=== PATIENT | female | born 1945 | race Caucasian/White ===

== ENCOUNTER 2018-04-27 11:26 | Outpatient (CLI) | payer MEDICARE, SELFPAY ==
[2018-04-27 13:17] LABS: CREATININE 0.66 mg/dL (0.55-1.02); Potassium 4.3 mmol/L (3.5-5.1)
== END 2018-04-27 11:46 ==
PROVIDERS: PCP Family Medicine; Visit Provider Family Medicine
DX: I10 Essential (primary) hypertension (principal); D05.90 Unspecified type of carcinoma in situ of unspecified breast
CPT/HCPCS: 36415; 82565; 84132

== ENCOUNTER 2018-05-25 00:09 | Outpatient (CLI) | payer MEDICARE, SELFPAY ==
--- NOTE | 2018-05-25 13:15 | DI.MAMMO_ITS ---
SYMPTOMS/DIAGNOSIS: CARCINOMA IN SITU OF RIGHT BREAST IN 1993, D05.90, PERSONAL H/O BREAST CA, SCREENING, Z12.31 MAMMOGRAMS: Mammograms were interpreted according to the usual protocol including computer analysis with CAD system, tomosynthesis and C view imaging. Comparison is with the prior examinations. No suspicious masses or microcalcifications are seen. There has been no significant change compared to the prior examinations. IMPRESSION: No evidence for malignancy. Yearly mammography is recommended. Category 1. Breast density B. MQSA ASSESSMENT OF FINDINGS: Negative. Category 1. Patient will receive a letter notifying them of these results. BI-RADS category B. There are scattered areas of fibroglandular density.
== END 2018-05-25 00:29 ==
PROVIDERS: PCP Family Medicine; Visit Provider Family Medicine
DX: Z12.31 Encounter for screening mammogram for malignant neoplasm of breast (principal); Z85.3 Personal history of malignant neoplasm of breast
CPT/HCPCS: 77063; 77067

== ENCOUNTER 2018-10-07 02:23 | Outpatient (CLI) | payer MEDICARE, SELFPAY ==
--- NOTE | 2018-10-07 08:01 | DI.MRI_ITS ---
SYMPTOM/DIAGNOSIS: RT SIDED HEADACHE, R51 BRAIN MRI: There are no prior comparison exams. T 2 sagittal, T 1, T 2, FLAIR, diffusion and gradient echo axial sequences were performed. No intracranial hemorrhage, mass or acute infarct is seen. There is mild atrophy consistent with the patient's age. There are numerous areas of white matter consistent with small vessel disease. The ventricles are normal in size. The vascular flow voids appear intact. There is mild mucosal thickening of the right maxillary sinus. The mastoid air cells appear clear. IMPRESSION: Prominent changes of small vessel disease. No acute abnormality.
[2018-10-07 10:49] LABS: ESR 10 MM/HR (0-30)
== END 2018-10-07 02:43 ==
PROVIDERS: PCP Family Medicine; Visit Provider Family Medicine
DX: R51 Headache (principal); G31.1 Senile degeneration of brain, not elsewhere classified
CPT/HCPCS: 36415; 85652; 70551

== ENCOUNTER 2019-05-26 00:41 | Outpatient (CLI) | payer MEDICARE, SELFPAY ==
--- NOTE | 2019-05-26 14:19 | DI.MAMMO_ITS ---
EXAM: MG MAMMO SCREENING 60 MIN DUR CLINICAL HISTORY: HX OF BREAST CANCER TECHNIQUE: Bilateral full field digital CC and MLO mammographic images were obtained with 3D tomosyn thesis and utilizing computer aided detection (CAD). COMPARISON: Available for comparison. FINDINGS: Masses/Architectural Distortion: None seen. Microcalcifications: No suspicious pleomorphic-type are seen. Skin Thickening/Nipple Retraction: None. IMPRESSION: 1. No significant interval change with no specific features of malignancy noted. 2. Unless there is more urgent need, screening mammography is recommended, as per [employer] guidelines. ACR BI-RAD Category- 1 Negative Breast Density - Category B - Scattered areas of fibroglandular density The findings were discussed with the patient on the date of the examination. A negative radiographic report should not delay biopsy if a dominant or clinically suspicious mass is present. Up to ten percent of cancers are not identified on mammography. A negative report may reinforce clinical impression. Adenosis and dense breasts may obscure an underlying neoplasm. False positive reports average 6 to 10%. Patient will receive a letter notifying them of these results.
[2019-05-26 15:42] LABS: CREATININE 0.68 mg/dL (0.55-1.02); Calculated LDL 100 mg/dL; Cholesterol 202 mg/dL (<200); HDL Cholesterol 40 mg/dL (40-60); Potassium 4.2 mmol/L (3.5-5.1); Triglyceride 314 mg/dL (<150)
== END 2019-05-26 01:01 ==
PROVIDERS: PCP Family Medicine; Visit Provider Family Medicine
DX: Z12.31 Encounter for screening mammogram for malignant neoplasm of breast (principal); Z85.3 Personal history of malignant neoplasm of breast; E78.00 Pure hypercholesterolemia, unspecified
CPT/HCPCS: 36415; 77063; 77067; 80061; 82565; 84132

== ENCOUNTER 2019-06-05 01:27 | Outpatient (CLI) | payer MEDICARE, SELFPAY ==
[2019-06-05 09:43] LABS: Triglyceride 151 mg/dL (<150)
== END 2019-06-05 01:47 ==
PROVIDERS: PCP Family Medicine; Visit Provider Family Medicine
DX: E78.1 Pure hyperglyceridemia (principal)
CPT/HCPCS: 36415; 84478

== ENCOUNTER 2020-08-27 01:25 | Outpatient (CLI) | payer MEDICARE, SELFPAY ==
--- NOTE | 2020-08-27 08:47 | DI.RAD_ITS ---
EXAM: XR TIB/FIB RT CLINICAL HISTORY: Pt fell in tub and hit alcantara/foot on tub wall,M79.671 TECHNIQUE: COMPARISON: No exams were available for comparison FINDINGS: Two views were obtained. There is no evidence of fracture or dislocation. IMPRESSION: RADIATION DOSE DELIVERED: Total DLP
== END 2020-08-27 01:45 ==
PROVIDERS: PCP Family Medicine; Visit Provider Nurse Practitioner Family
DX: M79.671 Pain in right foot (principal); I10 Essential (primary) hypertension; R73.9 Hyperglycemia, unspecified; R78.5 Finding of other psychotropic drug in blood; E03.9 Hypothyroidism, unspecified
CPT/HCPCS: 36415; 80061; 82947; 73590; 82565; 84132; 84443

== ENCOUNTER 2020-08-27 02:46 | Outpatient (CLI) | payer MEDICARE, SELFPAY ==
[2020-08-27 09:55] LABS: CREATININE 0.8 mg/dL (0.55-1.02); Glucose 98 mg/dL (74-106); Potassium 4.4 mmol/L (3.5-5.1); TSH (W/Ref FT4) 3.44 uIU/mL (0.36-3.74)
[2020-08-27 10:13] LABS: Calculated LDL 112 mg/dL (<100); Cholesterol 195 mg/dL (<200); HDL Cholesterol 45 mg/dL (40-60); Triglyceride 194 mg/dL (<150)
== END 2020-08-27 02:47 | disposition home or self-care (01) ==
LOC: LBO 02:46
PROVIDERS: PCP Family Medicine; Visit Provider Family Medicine
DX: I10 Essential (primary) hypertension (principal); R73.9 Hyperglycemia, unspecified; R78.5 Finding of other psychotropic drug in blood; E03.9 Hypothyroidism, unspecified
CPT/HCPCS: 36415; 80061; 82947; 82565; 84132; 84443

== ENCOUNTER 2020-09-04 01:49 | Outpatient (CLI) | payer MEDICARE, SELFPAY ==
--- NOTE | 2020-09-04 14:05 | DI.MAMMO_ITS ---
EXAM: MG MAMMO SCREENING 60 MIN DUR CLINICAL HISTORY: breast cancer screening,PERSONAL H/O BREAST CA,Z85.3,Z12.39. TECHNIQUE: Bilateral full field digital CC and MLO mammographic images were obtained with 3D tomosyn thesis and utilizing computer aided detection (CAD). COMPARISON: Prior mammograms dating back to 2010, the most recent being May 2019. FINDINGS: No new significant radiograph findings in the right breast. There is a small benign-appearing partia lly calcified nodule inferiorly in the left breast measuring 4 x 3 millimeters, unchanged from 1013 a nd therefore benign. There are no new spiculated masses nor malignant appearing microcalcification groups. There is no significant architectural distortion nor skin thickening-retraction. IMPRESSION: Stable benign findings. No radiographic evidence of malignancy. BI-RADS Category 2 - Benign Findings Breast Density - Category B - Scattered areas of fibroglandular density Breast density Category C or D implies that the patient has dense breast tissue. Dense breast tissue can make it harder to find cancer on a mammogram. Dense breast tissue is also associated with an incr eased risk of breast cancer. This information about the result of the mammogram report was provided to the patient to raise their awareness. Use this report when you speak with the patient about their risks for breast cancer, which includes their family history. At that time, you may recommend additional screening tests (Ultrasoun d or MRI) as these tests may add significant information. A negative radiographic report should not delay biopsy if a dominant or clinically suspicious mass is present. Up to ten percent of cancers are not identified on mammography. A negative report may reinforce clinical impression. Adenosis and dense breasts may obscure an underlying neoplasm. False positive reports average 6 to 10%. Patient will receive a letter notifying them of these results.
== END 2020-09-04 02:09 ==
PROVIDERS: PCP Family Medicine; Visit Provider Family Medicine
DX: Z12.31 Encounter for screening mammogram for malignant neoplasm of breast (principal); Z85.3 Personal history of malignant neoplasm of breast
CPT/HCPCS: 77063; 77067

== ENCOUNTER 2021-02-26 12:53 | Outpatient (REF) | payer MEDICARE, SELFPAY ==
[2021-02-28 00:46] LABS: COVID-19 RT-PCR UVMMC Result Negative (Negative)
== END 2021-02-26 12:54 | disposition home or self-care (01) ==
LOC: LBN 12:53
PROVIDERS: PCP Family Medicine; Visit Provider Physician Assistant
DX: Z20.822 Contact with and (suspected) exposure to COVID-19 (principal)
CPT/HCPCS: U0003; U0005

== ENCOUNTER 2021-08-26 01:27 | Outpatient (CLI) | payer MEDICARE, SELFPAY ==
[2021-08-26 08:39] LABS: HCT 44.4 % (36.0-46.0); HGB 14.4 g/dL (11.2-15.7); MCHC 32.4 % (32.0-36.0); MCV 95.5 fL (80-95); MPV 9.4 fL (8.0-11.0); Platelet Count 191 10^3/uL (130-400); RBC 4.65 10^6/uL (3.93-5.22); RDW 12.5 % (11.7-14.6); RDW-SD 44.3 fL; WBC 6.41 10^3/uL (4.4-10.8)
[2021-08-26 10:21] LABS: Anion Gap 9.3 mmol/L (3-11); BUN 15 mg/dL (7-18); CO2 27.7 mmol/L (21.0-32.0); CREATININE 0.7 mg/dL (0.55-1.02); Calcium 8.8 mg/dL (8.5-10.1); Calculated LDL 122 mg/dL (<100); Chloride 103 mmol/L (98-107); Cholesterol 213 mg/dL (<200); Glucose 95 mg/dL (74-106); HDL Cholesterol 46 mg/dL (40-60); Potassium 4.4 mmol/L (3.5-5.1); Sodium 140 mmol/L (136-145); Triglyceride 225 mg/dL (<150); Vitamin B12 335 pg/mL (193-986)
== END 2021-08-26 01:28 | disposition home or self-care (01) ==
LOC: LBO 01:27
PROVIDERS: PCP Family Medicine; Visit Provider Family Medicine
DX: R53.83 Other fatigue (principal); E87.1 Hypo-osmolality and hyponatremia; E78.5 Hyperlipidemia, unspecified; D64.9 Anemia, unspecified
CPT/HCPCS: 36415; 80048; 80061; 85027; 82607

== ENCOUNTER → 2021-09-22 01:16 | Outpatient (CLI) | payer MEDICARE, SELFPAY ==
--- NOTE | 2021-09-22 07:15 | DI.US_ITS ---
Exam(s) US SOFT TISSUE EXTREMITY EXAM: US SOFT TISSUE EXTREMITY CLINICAL HISTORY: rt deltoid swelling/mass ? lipoma,r22.31. TECHNIQUE: Ultrasound was performed using standard protocol. COMPARISON: No exams were available for comparison FINDINGS: Sonographic assessment utilizing grayscale and color Doppler imaging was performed and targeted to th e area of clinical concern. No discrete mass or fluid collection is visible. IMPRESSION: No discrete mass or fluid collection is visible. DATA REPOSITORY:
== END ==
PROVIDERS: PCP Family Medicine; Visit Provider Family Medicine
DX: R22.31 Localized swelling, mass and lump, right upper limb (principal)
CPT/HCPCS: 76881

== ENCOUNTER → 2021-09-29 01:21 | Outpatient (CLI) | payer MEDICARE, SELFPAY ==
--- NOTE | 2021-09-29 10:42 | DI.RAD_ITS ---
Exam(s) XR SHOULDER RT COMPLETE 2+V EXAM: XR SHOULDER RT COMPLETE 2+V CLINICAL HISTORY: rt shoulder pain,m25.511. TECHNIQUE: 2D digital imaging was performed. Five views. COMPARISON: No exams were available for comparison FINDINGS: BONES: No acute fracture is present. No bony destructive lesion is seen. JOINTS: No dislocation present. Mild spurring AC joint and glenohumeral joint. No humeral joint spa ce well maintained. SOFT TISSUE: Normal. IMPRESSION: Mild degenerative changes. DATA REPOSITORY: RADIATION DOSE DELIVERED:
== END ==
PROVIDERS: PCP Family Medicine; Visit Provider Family Medicine
DX: M25.511 Pain in right shoulder (principal); M19.011 Primary osteoarthritis, right shoulder
CPT/HCPCS: 73030

== ENCOUNTER 2021-10-08 02:34 | Outpatient (CLI) | payer MEDICARE, SELFPAY ==
--- NOTE | 2021-10-08 07:27 | DI.MAMMO_ITS ---
Exam(s) MG MAMMO SCREENING 60 MIN DUR EXAM: MG MAMMO SCREENING 60 MIN DUR CLINICAL HISTORY: breast cancer screening,personal h/o breast ca,z85.3 TECHNIQUE: Mammograms were interpreted according to the usual protocol including computer analysis w [employer] CAD system, tomosynthesis and C-view imaging. COMPARISON: 2011 through 2020 FINDINGS: The breasts are composed of scattered fibroglandular densities, Breast Density category B. No suspicious masses or suspicious microcalcifications are seen. No skin thickening or abnormal axillary lymph nodes are seen. There has been no significant change from prior exams. IMPRESSION: BI-RADS Category 1, Negative mammogram Yearly screening mammography is recommended. Breast Density - Category B, scattered fibroglandular densities. A negative radiographic report should not delay biopsy if a dominant or clinically suspicious mass is present. Up to ten percent of cancers are not identified on mammography. A negative report may reinforce clinical impression. Adenosis and dense breasts may obscure an underlying neoplasm. False positive reports average 6 to 10%. Patient will receive a letter notifying them of these results.
== END 2021-10-08 02:54 ==
PROVIDERS: PCP Family Medicine; Visit Provider Family Medicine
DX: Z12.31 Encounter for screening mammogram for malignant neoplasm of breast (principal); Z85.3 Personal history of malignant neoplasm of breast
CPT/HCPCS: 77063; 77067

== ENCOUNTER → 2021-10-14 10:26 | Outpatient (BNVA) | payer MEDICARE, SELFPAY | PROVIDERS: PCP Family Medicine; Referring Provider Family Medicine; Visit Provider Physician Assistant | DX: M75.21 Bicipital tendinitis, right shoulder (principal) | CPT/HCPCS: 99203 ==

== ENCOUNTER 2021-10-31 08:10 | Day surgery (SDC) | payer MEDICARE, SELFPAY ==
[2021-10-31 08:44] VITALS: BP 156/86; PULSE 65; RESP 16; TEMP 36.1; O2SAT 97
[2021-10-31] MEDS: Tropicam./Phenyleph. (1/2.5%) 5 ML BTL OD ×3 (08:50→09:07)
--- NOTE | 2021-10-31 08:59 | ANES.PREOP_ITS ---
General Info Date of Service Date Performed: 10/31/21 Height: 5 ft 4 in Weight: 80.6 kg Body Mass Index (BMI): 30.4 Surgical Procedure: Operation Date: 10/31/21 09:55 Proposed Procedure Side Surgeon p Cataract Extraction with IOL Implant Right Fred Diaz MD Meds Allergies and Home Medications Allergies Allergy/AdvReac Type Severity Reaction Status Date / Time Sulfa (Sulfonamide Allergy Intermediate Hives Verified 10/31/21 08:42 Antibiotics) clams AdvReac Mild GI Upset Verified 10/31/21 08:42 Home Medication Medication Instructions Recorded Psyllium [Metamucil] 1 ea PO DAILY PRN 08/18/12 multivitamin (Once Daily tablet) 1 ea PO DAILY 08/18/12 omega-3 fatty acids-fish oil 340 1 ea PO DAILY 08/18/12 mg-1,000 mg capsule (Fish Oil) aspirin 81 mg tablet,delayed 1 tab PO DAILY 06/13/16 release (Aspir-) acetaminophen 500 mg tablet 1,000 mg PO Q6H PRN 07/01/16 (Tylenol Extra Strength) loratadine 10 mg tablet 10 mg PO DAILY PRN #30 tab-caps 04/19/19 lisinopril 5 mg tablet 5 mg PO DAILY #90 tab-caps 03/20/21 Current Visit Medications: Current Medications Generic Name Dose Route Start Last Admin Trade Name Freq PRN Reason Stop Dose Admin Acetaminophen 1,000 mg 10/31/21 06:00 Acetaminophen 500 Mg Tab PO Q4H PRN PRN Miscellaneous Medication 0 ml 10/31/21 06:00 Prednisolone 1%, Moxifloxacin 0.5%, Nepafenac 0.1% 5ml Btl OD DIRECTED [facility] Miscellaneous Medication 0 ml 10/31/21 06:00 10/31/21 08:55 Tropicam./Phenyleph. (1/2.5%) 5 Ml Btl OD 1 drp DIRECTED GERALDO Administration Tetracaine HCl 0 ml 10/31/21 06:00 Tetracaine 0.5% 4 Ml Btl OD DIRECTED [facility] PFSH Active Problems Active Problems: Problem Status Onset Code Arthritis of left knee 04/16/17 M17.12 Nondisplaced fracture of lateral malleolus of right fibula, subsequent encounter for closed fracture with routine healing 02/15/17 S82.64XD Hearing loss H91.90 Hypercholesterolemia 11/24/07 E78.00 Essential hypertension I10 Increased BMI R63.8 Pressure sensation in right ear 02/02/17 H93.8X1 Sensorineural hearing loss of both ears H90.3 Headache R51 Status post cholecystectomy Z90.49 Status post breast biopsy Z98.890 Status post abdominal hysterectomy Z90.710 Migraine G43.909 Lyme disease A69.20 History of gynecological procedure Z98.890 History of bladder repair surgery Z98.890 History of bilateral oophorectomy Z90.722 Hip pain M25.559 Right foot pain M79.671 Asymmetrical sensorineural hearing loss H90.3 Lesion of upper extremity L98.9 Peripheral neuropathy G62.9 Screening for colon cancer Z12.11 Right shoulder pain M25.511 Tendonitis of long head of biceps brachii of right shoulder M75.21 Medical History Medical History Cataract Hypertension Surgical History Surgical History Abdominal hysterectomy Biopsy of breast Bladder Surgery (~03/2011) CYSTOCELE REPAIR Cholecystectomy Oophrectomy, Left 03/24 LEFT Oophrectomy, Right DX; CYST VAGINAL PROLAPSE REPAIR (~03/2011) Tobacco Smoking/Tobacco Use Status: Never Passive smoking exposure: Yes Second hand exposure: Yes Alcohol Alcohol Intake: current Alcohol intake frequency: holidays/special occasions only Substance Use Substance use: Never Substance use type: does not use Vital Signs and Lab Results Vital Signs Most Recent Vital Signs in EMR: Most Recent Vital Signs Temp Pulse Resp BP Pulse Ox 36.1 C L 65 16 156/86 H 97 10/31/21 08:44 10/31/21 08:44 10/31/21 08:44 10/31/21 08:44 10/31/21 08:44 Lab Results Blood Type / Crossmatch: No Data to Display Complete Blood Count: No Data to Display Complete Metabolic Panel: No Data to Display Liver Function Panel: No Data to Display Coagulation Panel: No Data to Display Cardiac Panel: No Data to Display Arterial Blood Gas: No Data to Display Venous Blood Gas: No Data to Display Pancreas Panel: No Data to Display Thyroid Panel: No Data to Display Infectious Disease: No Data to Display Blood Cultures: No Data to Display Toxicology Panel: No Data to Display Anesthesia Assessment and Plan Anesthesia History Personal History: No History of Anesthesia Complications Family History: No Family History of Anesthesia Complications Exercise Tolerance Exercise Tolerance: Metabolic Equivalents>4 Pertinent Negatives Pertinent Negatives: No Symptoms of GERD, No Major Cardiovascular Symptoms or Complaints and No Major Pulmonary Symptoms or Complaints Cardiac & Pulmonary Exam Cardiac Exam: Normal S1/S2 Heart Sounds Pulmonary Exam: Clear Bilateral Breath Sounds Implantable Cardiac Device Does patient have a Pacemaker or an ICD?: No Airway Exam Known Difficult Airway: No Mallampati Class: 2 Mouth Opening: Normal (> 3cm) Thyromental Distance: Greater than 3 cm Neck Range of Motion: Full ROM Neck Circumference: Normal Teeth Condition: Normal Dentition ASA Classification ASA Score: ASA 2 Emergency Case?: No NPO Status NPO Status: NPO Clears >2 hours, Solids >8 hours Anesthesia Plan Resuscitation Status: Full Code Anesthesia Technique: MAC Anesthesia Airway Planned: Natural Airway Monitors Used: Standard Monitors
[2021-10-31 09:01] VITALS: BMI 30.4
[2021-10-31] MEDS: Tetracaine 0.5% 4 ML BTL OD (09:57)
[2021-10-31] MEDS: Duovisc Viscoelastic System EACH 1 EACH (10:02)
[2021-10-31] MEDS: Balanced Salt Soln.-PLUS 500 ML BAG (10:02)
[2021-10-31] MEDS: Povidone-Iodine Ophth 30 ML BTL (10:03)
[2021-10-31] MEDS: Lidocaine 2% Jelly 6 ML SYR (10:03)
[2021-10-31] MEDS: Triamcinolone 40 MG/ML VIAL (10:04)
[2021-10-31 10:24] VITALS: BP 139/83; PULSE 66; RESP 18; TEMP 36.3; O2SAT 97
--- NOTE | 2021-10-31 10:27 | W.PM.DSUDISC ---
Discharge Plan Disposition Patient Disposition: HOME Condition: Good Discharge Details Attending Provider: Fred Diaz Primary Care Provider: Italo Jolly. Home Meds and New Rx's Prescriptions: No Action multivitamin [Once Daily] 1 EACH tablet 1 ea PO DAILY Fish Oil 1 EACH capsule 1 ea PO DAILY Psyllium [Metamucil] 1 EACH packet 1 ea PO DAILY PRN acetaminophen [Tylenol Extra Strength] 500 MG tablet 1,000 mg PO Q6H PRN loratadine 10 mg tablet 10 mg PO DAILY PRN MDD 10mg Qty: 30 Rx Instructions: Take daily for 2 weeks, then as needed daily. lisinopril 5 mg tablet 5 mg PO DAILY Qty: 90 3RF aspirin [Aspir-81] 81 MG tablet,delayed release (DR/EC) 1 tab PO DAILY Discharge Instructions Stand Alone Forms: Post-op Topical Cataract, Press Ganey (DSU) Discharge Orders Discharge Orders: Discharge Order (Routine); Ordered 10/31/21 Ordered By: Fred Diaz DS: Diagnosis Discharge Diagnosis (1) Nuclear sclerotic cataract of right eye: Status: Resolved
--- NOTE | 2021-10-31 10:28 | W.ANESPOSTOP ---
Postoperative Evaluation Date, Time and Location Date Performed: 10/31/21 Time Performed: 10:24 Patient Location: Day Surgery Unit Vital Signs Most Recent Imported Vital Signs: Most Recent Vital Signs Temp Pulse Resp BP Pulse Ox 36.3 C L 66 18 139/83 97 10/31/21 10:24 10/31/21 10:24 10/31/21 10:24 10/31/21 10:24 10/31/21 10:24 Pain Score Most Recent Pain Score: Most Recent Pain Score Pain Level 0 10/31/21 10:24 Assessment Mental Status: Awake (Alert & Oriented to Patient Baseline) Airway and Respiratory Function: Patent airway with normal (patient baseline) respiratory exam Cardiovascular Function: Hemodynamically Stable Hydration Status: Adequately Hydrated Nausea & Vomiting: No Nausea or Vomiting Pain: Pt. Denies Any Pain Peripheral Nerve Block: Patient did not receive a nerve block
--- NOTE | 2021-10-31 10:28 | W.PM.OP ---
Date of service: 10/31/21 Time of Service: 09:28 Operative Note Operative Note DATE OF PROCEDURE: 12/30/20 PRE-OP DIAGNOSIS: Nuclear cataract, right eye POST-OP DIAGNOSIS: same PROCEDURE: Cataract extraction using phacoemulsification with intraocular lens implant, right eye SURGEON: Fred Diaz ANESTHESIA TYPE: Local By Surgeon and MAC Refer to Anesthesia Record ESTIMATED BLOOD LOSS: 0 PATHOLOGY: none sent COMPLICATIONS: None Patient was transported to: same day Patient's condition: stable Implants: Daniel & Daniel/EDUARDO Tecnis [id number] Indications: Progressive visual loss due to cataract, right eye Procedure Description: CATARACT SURGERY OPERATIVE REPORT PREOPERATIVE DIAGNOSIS: 1. Nuclear cataract, right eye POSTOPERATIVE DIAGNOSIS: Same OPERATION: 1. Cataract extraction using phacoemulsification with posterior chamber intraocular lens implant, right eye. IOL: IOL Housing Quality Standard Inspector/Model: Daniel & Daniel / EDUARDO Tecnis [id number] IOL Power: + 16 point diopters IOL Serial Number: [id number] Optic Diameter: 6.0mm Haptic/Overall Diameter: 13.0mm PHACO INFO: TusharEasel Learn Vision System with OZil and Active Fluidics Cumulative Dispersed Energy (CDE): 10.06 seconds SURGEON: Fred Diaz MD, ARTEMIO ANESTHESIA: Monitored Anesthesia Care (MAC), with local sub-tenon's anesthetic infiltration COMPLICATIONS: None SPECIMENS: None INDICATIONS FOR PROCEDURE: The patient is a 76-year-old lady with history of diminished visual acuity in her right eye secondary to the development of moderate nuclear cataract. She has a history of myopia and is noting significant difficulty with reading fine print. The option of cataract surgery was offered to the patient and she felt she was symptomatic enough that she wished to proceed. Of note, she has a history of epiretinal membrane. Periocular Kenalog is planned to reduce the risk of postoperative cystoid macular edema. PROCEDURE: The correct surgical eye was identified and marked as the right eye and the pupil was dilated in the preoperative area using mydriatics and cycloplegics. The dilated pupil size was 7.0 mm. She elected to proceed without oral sedation.. The patient was brought to the operating room where cardiopulmonary monitoring was instituted and surgical time-out was performed, confirming the correct operative eye and IOL power. Topical anesthesia was administered and ophthalmic povidone-iodine 5% was instilled into the conjunctival fornices. Lidocaine gel was applied to the cornea and the peggy-ocular area was prepped with Betadine 10% solution and draped in the usual sterile fashion for intraocular surgery, including an aperture drape. A Tegaderm transparent film dressing was cut in half and used to cover the lashes and lid margins. Care was taken to sequester the lashes and lid margins under the Tegaderm dressing. A lid speculum was placed between the lids of the operative eye and the Tushar LuxOR Revalia operating microscope was maneuvered into position. Yeny scissors were then used to make a conjunctival buttonhole approximately 6mm posterior to the limbus in the inferonasal quadrant. Blunt dissection was carried out to expose bare sclera, and a blunt-tipped sub-tenon?s anesthesia cannula was introduced and passed posteriorly along the globe where non-preserved plain lidocaine was injected into posterior sub-Tenon?s space. A sideport knife was used to make a paracentesis port inferotemporally. Intraocular phenylephrine/lidocaine was injected into the anterior chamber. The anterior chamber was filled with viscoelastic. A 2.4mm keratome knife was used to construct a 2-plane near-clear corneal tunnel extending 2.0mm into clear cornea superiortemporally. A flap was raised on the anterior capsule and capsulorhexis forceps were used to complete a continuous curvilinear capsulorhexis of 5.0 mm. Balanced salt solution was then used to perform cortical cleaving hydrodissection and nuclear hydrodelineation until the lens could be freely rotated within the capsular bag. The lens nucleus was then disassembled and removed within the capsular bag and iris plane using phacoemulsification. Residual cortical material was removed using the I/A handpiece. The posterior capsule was carefully polished to remove as much residual lens epithelial cells as safely possible. The capsular bag was then inflated and the anterior chamber deepened with viscoelastic. The lens implant described above was inserted into the capsular bag using the EDUARDO Ambler Injector. A Kuglen hook was used to dial the IOL into position. Residual viscoelastic was then removed first from posterior to the IOL, then from the anterior chamber using the I/A handpiece. The lens implant was noted to center nicely within the capsular bag. The incisions were stromally hydrated, and the anterior chamber was reformed using BSS. Then 0.5cc of moxifloxacin 1.0mg/ml were injected into the capsular bag and anterior chamber. The incisions were checked with a Weck spear and found to be secure. At the conclusion of the procedure, Kenalog 20 mg in 0.5 cc were injected into posterior sub-tenon's space using the sub-tenon's anesthesia injection cannula. Several drops of ophthalmic povidone-iodine 5% were then applied to the eye followed by two drops of Imprimis combination prednisolone/moxifloxacin/nepafenac solution. The drapes were removed and a clear plastic protective eye shield was placed over the eye. The patient was then returned to Same Day Surgery in stable condition.
== END 2021-10-31 10:43 | disposition home or self-care (01) ==
PROVIDERS: PCP Family Medicine; Visit Provider Ophthalmology
PROC: (CPT 66984; principal; 2021-10-31 09:45)
DX: H25.11 Age-related nuclear cataract, right eye (principal); I10 Essential (primary) hypertension; E78.00 Pure hypercholesterolemia, unspecified
CPT/HCPCS: 66984; V2632

== ENCOUNTER → 2022-07-30 09:41 | Outpatient (BNVA) | payer MEDICARE, SELFPAY | PROVIDERS: PCP Family Medicine; Referring Provider Family Medicine; Visit Provider Physical Therapy Assistant | DX: Z12.11 Encounter for screening for malignant neoplasm of colon (principal) ==

== ENCOUNTER 2022-09-09 02:07 | Outpatient (CLI) | payer MEDICARE, SELFPAY ==
[2022-09-09 14:39] LABS: CREATININE 0.8 mg/dL (0.55-1.02); Potassium 3.9 mmol/L (3.5-5.1); TSH (W/Ref FT4) 2.21 uIU/mL (0.36-3.74)
== END 2022-09-09 02:08 | disposition home or self-care (01) ==
LOC: LBO 02:07
PROVIDERS: PCP Family Medicine; Visit Provider Family Medicine
DX: I10 Essential (primary) hypertension (principal); E03.9 Hypothyroidism, unspecified
CPT/HCPCS: 36415; 82565; 84132; 84443

== ENCOUNTER 2022-10-09 00:08 | Outpatient (CLI) | payer MEDICARE, SELFPAY ==
--- NOTE | 2022-10-09 06:56 | DI.MAMMO_ITS ---
Exam(s) MG MAMMO SCREENING 60 MIN DUR EXAM: MG MAMMO SCREENING 60 MIN DUR CLINICAL HISTORY: breast cancer screening,Z12.39, PERSONAL H/O BREAST CA TECHNIQUE: Mammograms were interpreted according to the usual protocol including computer analysis w [employer] CAD system, tomosynthesis and C-view imaging. COMPARISON: 2012 through 2021 FINDINGS: The breasts are composed of scattered fibroglandular densities, Breast Density category B. No suspicious masses or suspicious microcalcifications are seen. No skin thickening or abnormal axillary lymph nodes are seen. There has been no significant change from prior exams. IMPRESSION: BI-RADS Category 1, Negative mammogram Yearly screening mammography is recommended. Breast Density - Category B, scattered fibroglandular densities. A negative radiographic report should not delay biopsy if a dominant or clinically suspicious mass is present. Up to ten percent of cancers are not identified on mammography. A negative report may reinforce clinical impression. Adenosis and dense breasts may obscure an underlying neoplasm. False positive reports average 6 to 10%. Patient will receive a letter notifying them of these results.
== END 2022-10-09 00:28 ==
LOC: DI 00:09
PROVIDERS: PCP Family Medicine; Visit Provider Family Medicine
DX: Z12.31 Encounter for screening mammogram for malignant neoplasm of breast (principal)
CPT/HCPCS: 77063; 77067

== ENCOUNTER → 2023-03-29 10:26 | Outpatient (BNVA) | payer MEDICARE, SELFPAY | PROVIDERS: PCP Family Medicine; Referring Provider Family Medicine; Visit Provider Surgery | DX: Z12.11 Encounter for screening for malignant neoplasm of colon (principal) ==

== ENCOUNTER 2023-04-06 08:18 | Day surgery (SDC) | payer MEDICARE, SELFPAY ==
--- NOTE | 2023-04-05 16:10 | PDOC.DSDIS_ITS ---
Date of service: 04/06/23 Time of Service: 10:31 Discharge Plan Disposition Patient Disposition: Home Condition: Good Discharge Details Reason For Visit: Colon scope Attending Provider: Sujata Mckeon Primary Care Provider: Italo Jolly Home Meds and New Rx's Prescriptions: Continued Adult 50 Plus Probiotic 4 billion cell capsule 4,000 mmu cells PO DAILY Rx Instructions: administer with a meal multivitamin [Once Daily] 1 EACH tablet 1 ea PO DAILY Fish Oil 1 EACH capsule 1 ea PO DAILY Psyllium [Metamucil] 1 EACH packet 1 ea PO DAILY PRN acetaminophen [Tylenol Extra Strength] 500 MG tablet 1,000 mg PO Q6H PRN loratadine 10 mg tablet 10 mg PO DAILY PRN MDD 10mg Qty: 30 Rx Instructions: Take daily for 2 weeks, then as needed daily. lisinopril 5 mg tablet 5 mg PO DAILY Qty: 90 3RF aspirin [Aspir-81] 81 MG tablet,delayed release (DR/EC) 1 tab PO DAILY Discontinued bisacodyl [Dulcolax (bisacodyl)] 5 mg tablet,delayed release (DR/EC) 5 mg PO ONCE Qty: 4 0RF Rx Instructions: Take per colonoscopy instructions provided by ordering providers office polyethylene glycol 3350 17 gram/dose powder 17 g PO ONCE Qty: 238 0RF Rx Instructions: Take per colonoscopy instructions provided by ordering providers office Discharge Instructions Additional Instructions: [facility] Colonoscopy Post- Op Instructions Instructions for Everyone who is given Anesthesia: For your safety, please do the following for the next twenty-four (24) hours: *Do Not operate a motor vehicle (car, truck, motorcycle, etc.) *Do Not drink alcoholic beverages or use any recreational drugs for the first 24 hours or while taking pain medications. The medications in your body may have a reaction that can be dangerous. *Do Not make any important decisions or sign any important papers. Findings: severe diverticula -make sure you are moving your bowels on a regular regular basis and you are not straining to go to the bathroom. If you find you are having constipation/straining to move your bowels, that is recommended you start a fiber supplement daily such as Metamucil. You can use MiraLAX as an occasional rescue agent for severe constipation, but she should not rely on this for daily use. Follow up: No further colonoscopies required 1. No lifting over 20 pounds or strenuous activity for the first 24 hours after your procedure. After 24 hours there are no restrictions on your activity but you may feel fatigued for a few days. 2. After you arrive home you may have a light meal and return to your normal diet as you can tolerate it without feeling sick to your stomach. 3. You may have a bloated, gaseous feeling in your belly (abdomen) after a colonoscopy. Passing gas and belching will help. Walking or lying down on your left side with your knees flexed may relieve the discomfort. Call the office at [phone] (Office) or [phone] (Hospital) right away if you notice any of the following: a.Vomiting of blood or ?coffee ground stools?. b.Rectal bleeding 1Tbsp, blood clots or continuous bleeding. c.Severe belly (abdominal) pain. d.A hard distended belly (abdomen) and an inability to pass gas. 4. Please don?t expect to have a normal BM (bowel movement) for 2-3 days after your procedure. 5. If there are questions regarding the findings of your procedure, please contact your doctor 6. If you are unable to contact your doctor with a problem, contact the hospital at [phone]. 7. Continue all your regular medications unless directed otherwise. I understand the above instructions and have no questions. Signature of Patient or Adult Escort Name of Responsible Adult Escort Signature of Nurse Date/Time DIVERTICULAR DISEASE OVERVIEW???A diverticulum is a pouch-like structure that can form through points of weakness in the muscular wall of the colon (ie, at points where blood vessels pass through the wall). Diverticulosis affects men and women equally. The risk of diverticular disease increases with age. It occurs throughout the world but is seen more commonly in developed countries. WHAT IS DIVERTICULAR DISEASE? Diverticulosis???Diverticulosis merely describes the presence of diverticula. Diverticulosis is often found during a test done for other reasons, such as flexible sigmoidoscopy, colonoscopy, or barium enema. Most people with diverticulosis have no symptoms and will remain symptom free for the rest of their lives. A person with diverticulosis may have diverticulitis, or diverticular bleeding. Diverticulitis???Inflammation of a diverticulum (diverticulitis) occurs when there is thinning and breakdown of the diverticular wall. This may be caused by increased pressure within the colon or by hardened particles of stool, which can become lodged within the diverticulum. The symptoms of diverticulitis depend upon the degree of inflammation present. The most common symptom is pain in the left lower abdomen. Other symptoms can include nausea and vomiting, constipation, diarrhea, and urinary symptoms such as pain or burning when urinating or the frequent need to urinate. Diverticulitis is divided into simple and complicated forms. ?Simple diverticulitis, which accounts for 75 percent of cases, is not associated with complications and typically responds to medical treatment without surgery. ?Complicated diverticulitis occurs in 25 percent of cases and usually requires surgery. Complications associated with diverticulitis can include the following: ?Abscess ? a localized collection of pus ?Fistula ? an abnormal tract between two areas that are not normally connected (eg, bowel and bladder) ?Obstruction ? a blockage of the colon ?Peritonitis ? infection involving the space around the abdominal organ ?Sepsis ? overwhelming body-wide infection that can lead to failure of multiple organs Diverticular bleeding???Diverticular bleeding occurs when a small artery located within a diverticulum is eroded and bleeds into the colon. Diverticular bleeding usually causes painless bleeding from the rectum. In approximately 50 percent of cases, the person will see maroon or bright red blood with bowel movements. Is bleeding with a bowel movement normal?It is not normal to see blood in a bowel movement; this can be a sign of several conditions, most of which are not serious (eg, hemorrhoids) but some of which are serious and require immediate treatment. Anyone who sees blood after a bowel movement should consult with their healthcare provider to determine if further testing or evaluation is needed. DIVERTICULOSIS AND DIVERTICULITIS DIAGNOSIS???Diverticulosis is often found during tests performed for other reasons. ?Barium?enema ? This is an x-ray study that uses barium in an enema to view the outline of the lower intestinal tract. This is an older test and has been largely replaced by computed tomography (CT) scan. ?Flexible sigmoidoscopy ? This is an examination of the inside of the sigmoid colon with a thin, flexible tube that contains a camera. ?Colonoscopy ? This is an examination of the inside of the entire colon. ?CT scan ? A CT scan is often used to diagnose diverticulitis and its complications. If diverticulitis (not just diverticulosis) is suspected, the above three tests should not be used because of the risk of perforation. TREATMENT Diverticulosis???People with diverticulosis who do not have symptoms do not require treatment. However, most clinicians recommend increasing fiber in the diet, which can help to bulk the stools and possibly prevent the development of new diverticula, diverticulitis, or diverticular bleeding. Fiber is not proven to prevent these conditions in all patients but may help to control recurrent episodes in some. Increase fiber???Fruits and vegetables are a good source of fiber.? Fiber content of packaged foods can be calculated by reading the nutrition label. Seeds and nuts???Patients with diverticular disease have historically been advised to avoid whole pieces of fiber (such as seeds, corn, and nuts) because of concern that these foods could cause an episode of diverticulitis. However, this belief is completely unproven. We do not suggest that patients with diverticulosis avoid seeds, corn, or nuts. Diverticulitis???Treatment of diverticulitis depends upon how severe your symptoms are. Home treatment???If you have mild symptoms of diverticulitis (mild abdominal pain, usually left lower abdomen), you can be treated at home with a clear liquid diet and oral antibiotics. However, if you develop one or more of the following signs or symptoms, you should seek immediate medical attention: ?Temperature >100.1?F (38?C) ?Worsening or severe abdominal pain ?An inability to tolerate fluids Hospital treatment???If you have moderate to severe symptoms, you may be hospitalized for treatment. During this time, you are not allowed to eat or drink; antibiotics and fluids are given into a vein. If you develop an abscess of the colon, you may require drainage of the abscess (usually performed by placing a drainage tube across the abdominal wall) or by surgically opening the affected area. Surgery???If you develop a generalized infection in the abdomen (peritonitis), you will usually require an emergency operation. A two-part operation may be necessary in some cases. ?The first operation involves removal of the diseased colon and creation of a colostomy. A colostomy is an opening between the colon and the skin, where a bag is attached to collect waste from the intestine. The lower end of the colon is temporarily sewed closed to allow it to heal. ?Approximately three to six months later, a second operation is performed to reconnect the two parts of the colon and close the opening in the skin. You are then able to empty your bowels through the rectum. Sometimes patients require up to a year to recover from the first operation, depending on how sick they were. In non-emergency situations, the diseased area of the colon can be removed and the two ends of the colon can be reconnected in one operation, without the need for a colostomy. Surgery versus medical therapy???An operation to remove the diseased area of the colon may be necessary if you do not improve with medical therapy. After an episode of uncomplicated diverticulitis, elective surgery is generally not required as the risk of another attack or requiring emergency surgery is low. However, patients with persistent symptoms attributable to diverticulitis, a history of complicated diverticulitis, or a compromised immune system should be evaluated for possible surgery to prevent another attack. In such patients, another attack has been associated with a higher risk of complications or . Of course, the decision will also depend in part upon your other medical co nditions and ability to undergo surgery. In many cases, an elective operation can be performed laparoscopically, using small incisions, rather than the typical vertical (up and down) abdominal incision. Laparoscopic surgery usually allows you to recover more quickly and shortens the hospital stay. After diverticulitis resolves???After an episode of diverticulitis resolves, if you have not had a recent colonoscopy, the entire length of the colon should be evaluated to determine the extent of disease and to rule out the presence of abnormal lesions such as polyps or cancer. Recommended tests include colonoscopy, barium enema and sigmoidoscopy, or CT colonography. Diverticular bleeding???Most cases of diverticular bleeding resolve on their own . However, some people will need further testing or treatment to stop bleeding, which may include a colonoscopy, angiography (a treatment that blocks off the bleeding artery), bleeding scan, or surgery. DIVERTICULAR DISEASE PROGNOSIS Diverticulosis???Over time, diverticulosis may cause no problems or it may cause episodes of bleeding and/or diverticulitis. Approximately 15 to 25 percent of people with diverticulosis will develop diverticulitis, while 5 to 15 percent will develop diverticular bleeding. Diverticulitis???Approximately 85 percent of people with uncomplicated diverticulitis will respond to medical treatment, while approximately 15 percent of patients will need an operation. After successful treatment for a first attack of diverticulitis, one-third of patients will remain asymptomatic, one- third will have episodic cramps without diverticulitis, and one-third will go on to have a second attack of diverticulitis. The prognosis tends to remain similar following a second attack of diverticulitis. Only 10 percent of people remain symptom-free after a second attack. Subsequent attacks tend to be of similar severity, not increasing in severity as previously believed. High Fiber Diet What is Dietary Fiber? All fiber comes from plants, bushes, leann or trees.? Of course, the ones that we eat provide us with fruits, vegetables and grains.? There are many different types of fiber but the three that are most important to the health of the body are: Insoluble Fiber This fiber does not dissolve in water, nor is it fermented by the bacteria residing in the colon.? Rather, it retains water and in so doing, helps to promote a larger, bulkier and more regular bowel activity.? This, in turn, may be important in preventing disorder such as diverticulosis and hemorrhoids, and in sweeping out certain toxins and cancer causing carcinogens.? Sources of insoluble fiber are: ? whole grain wheat and other whole grains ? corn bran, including popcorn, unflavored and unsweetened ? nuts and seeds ? potatoes and the skins from most fruits from trees such as apples, bananas and avocados ? many green vegetables such as green beans, zucchini, celery and cauliflower ? some fruit plants such as tomatoes and kiwi Soluble Fiber These fibers are fermented or used by the colon bacteria as a food source or nourishment.? When these good bacteria grow and thrive, many health benefits occur in both the colon and the body.? Soluble fiber is present in some degree in most edible plant foods, but the ones with the most soluble fiber include: ? legumes such as peas and most beans, including soybeans ? oats, rye and barley ? many fruits such as berries, plums, apples bananas and pears ? certain vegetables such as broccoli and carrots ? most root vegetables ? psyllium husk supplement products Benefits of a High Fiber Diet The health benefits of a high fiber diet, consumed on a regular basis and reaching recommended amounts (below), are now fairly well-defined. There are s ome additional benefits in the early research stage with the prebiotic soluble fibers. What is now known regarding a high fiber diet include: Bowel Regularity A high fiber diet promotes regularity with a softer, bulkier and regular stool pattern. This decreases the chance of hemorrhoids, diverticulosis and perhaps colon cancer. Cholesterol and Reduced Triglycerides The soluble fibers are the ones that will reduce cholesterol levels when used on a regular basis. Psyllium husk and prebiotic soluble fiber will also reduce cholesterol. They may also reduce the incidence of coronary heart disease. Oats, flax seeds and legumes or beans are the recommended fibers. Colon Polyps and Cancer It is still not certain if a high fiber diet helps prevent colon cancer. Considerable research suggests that this may occur. Certainly it makes sense to increase regularity and so speed the movement of cancer causing carcinogens through the bowel. In addition, reducing a heavy meat diet reduces the bile flow from the liver in a favorable way. This, too, reduces the amount of carcinogens that reach and are manufactured in the colon. Finally, a high fiber diet, including prebiotic soluble fiber, increases the integrity and health of the wall of the colon. The risk of cancer may be reduced. Colon Wall Integrity A high fiber diet changes the bacterial makeup of the colon toward a more favorable balance. For instance, it is known that those people with obesity, diabetes type 2 and inflammatory bowel disease have a predominance of bad bacteria in the colon. This, in turn, may render the bowel wall weak and allow bacteria and, indeed, even toxins to seep through. A high fiber diet with a modest reduction in animal and meat products may return the bacterial makeup to a more positive balance. This, in particular, has been seen when the soluble fiber prebiotics are added to the diet. Blood Sugar Soluble fiber such as in legumes (beans), oats and in prebiotic fibers slows the absorption of blood sugar and so helps regulate the sugar in the blood. Insoluble fiber on a regular basis is associated with reduced risk of type 2 diabetes. Weight Loss High fiber diets are more filling and give a sense of fullness sooner than an animal and meat based diet does. In addition, the soluble prebiotic fibers have been shown to turn off the hunger hormones produced in the wall of the gut and to increase the hormones that give a sense of fullness. Those hormones are made in the wall of the gut. New medical research has shown that the bacterial makeup in the colon in overweight people is abnormal to the extent that they manufacture and absorb almost twice the number of calories through the colon wall as do normals. Prebiotic fibers (below) will help change this hormonal balancein a favorable way. Bacteria and the Function of the Colon The colon finishes the digestive process. Hopefully, the waste products move through in a nice regular manner. Insoluble fibers help this process by retaining water and so producing a bulkier, softer stool, which is easy to pass. The additional role of the colon is to provide a home for an enormous number of micro-organisms, mostly bacteria. Recent research has shown that there are over 1,000 species of bacteria with a total bacterial count ten times the number of cells in the body. These bacteria play a major role in keeping the colon wall itself healthy. In addition, these good bacteria produce a very strong immune system for the body. They significantly increase calcium absorption and bone density. They provide other documented benefits. It is the soluble fibers in the diet that are so effective in stimulating the growth of good colon bacteria. How Much is Enough? The amount of fiber in food is measured in grams.? National nutritional authorities recommend the following amounts of dietary fiber daily. Under Age 50? Over Age 50 Men? 38 grams? 30 grams Women??? 25 grams? 21 grams For a week or so, it is best to tally the amount of fiber you are consuming.? Boxed and packaged foods will have the amount of fiber per serving on the nutrition label. Which Fibers and Which Foods are Best? As noted, healthy fiber is only found in plants. The three major categories are whole grains, fruits and vegetables. Whole Grains Wheat, oats, barley, wild or brown rice, amaranth, buckwheat, bulgur, corn, millet, quinoa, rye, sorghum, teff and triticals. By far, wheat, oats and wild or brown rice are most common. Always buy whole grain products. White bread, baked goods and rolls almost always are made from wheat flour. Wheat flour is white because most of the fiber, vitamins and other nutrients have been removed. Try not buy enriched grains. What this means is that simple white flour has had vitamins added to it by the remote encoding center manager. The word, enriched, implies a good and healthy product. On the contrary, enriched means that most of the fiber has been removed and a few vitamins added. Fruits Fruits come from trees such as apple and pear or from bushes or leann. You should eat a wide variety of fruits, preferably with every meal. In many cases, the skin of a fruit such as apple will contain much of the insoluble fiber while the pulp contains most of the soluble fiber. To the extent possible, buy organic fruits as these will have little or no pesticides. Always wash fruit. Vegetables Eat a wide variety of vegetables. They should be a mainstay of lunch and dinners. Frozen vegetables retain as much nutrition and fiber as fresh vegetables. As with fruit, try to buy organic to reduce any residual pesticide ingestion. Wash fresh vegetables thoroughly. Cruciferous vegetables such as broccoli, [place] sprouts and cauliflower contain certain chemicals such as sulforaphane. This substance has very strong a nti-cancer properties and should be eaten frequently. Legumes, Beans, Peas and Soybeans These vegetables have plenty of soluble fiber and should be part of a varied vegetable intake. Beans, in particular, contain a certain type of fiber that may lead to harmless gas or bloating. Nuts and Seeds These are rich sources of fiber and are a good substitute for sweets such as candies and baked sweet goods. While nuts and seeds are rich in fiber, they also contain vegetable fat and so can and do add calories. Read the Labels As noted, fresh and frozen foods are usually better.? They have good nutrition and few, if any, chemicals added to them.? When buying packaged foods and, in particular grains, look for three things: ? The first word on the label should be whole, such as whole wheat or whole grain. ? Check out the calories and the amount of fiber in a serving. ? How many and what other additives or chemicals are added.? Fewer is always better.? Do you know what each additive does?? Some are added not for the benefit of the resident buyer but rather for manufacturers.? These could and do include sugar, artificial flavor, chemicals to prevent oxidation and spoilage, emulsifiers to blend the product.? You have to be a talent acquisition program manager. Fiber Facts, Nuggets and Pearls ? For breakfast you can easily get the day started well by using a high fiber, whole grain cereal.? Check the labels.? Add fruit such as blueberries and bananas.? If you are an egg eater, use whole wheat or grain toast.? Adding wheat germ gives you a good fiber kick. ? Always use whole grain or wheat with rolls and sandwiches.? Does your fast food store not have them?? Perhaps you look elsewhere.? Eating an occasional black joseph or veggie burger provides variety. ? Snacks should consist of fruit and/or nuts.? While nuts are loaded with fiber, they are an energy rich food, meaning they have a lot of calories in a small packet. ? Fruit juices should contain pulp.? Clear juices such as clear orange, pear or apple juice contain little fiber and have a lot of fructose.? Prune juice is usually high in fiber. ? Homemade soups ? adding fresh or frozen vegetables to a chicken or vegetable stock is a good way to start homemade soup. ? Salads ? adding cooked and then chilled vegetables provide great flavoring to almost any salad.? Remember, a arndt salad has lots of cooked corn in it.? Small slices of apples or oranges and nuts such as chopped walnuts or sliced almonds always adds taste, variety and fiber to almost any salad. ? Fruit ? Try to eat fruit of some type with almost every meal. ? Rethink how you place the various foods on your dinner plate.? Reducing the portions of the meat or animal food portion to the side with equal or more portions of vegetables, legumes and fruits portion always allows for more fiber.? There was never anything magic about making the meat or animal food portion the main part of the dinner plate.? Eating from smaller plates can, over time, trick your mind and regional intermodal truck driver habit of using a dinner plate.? Again, there is nothing magic in an 11, 12, or 13 inch dinner plate. Fiber Supplements There are a variety of fiber supplements available on the food or pharmacy shelves. Psyllium This soluble plant fiber has been used in [place] for over 2,000 years. It is a soluble fiber with mucilage in it. This acts to retain a lot of water and also is fermented by colon bacteria. When 7 grams a day are used, it does lower c holesterol. Metamucil in various forms is psyllium. Methyl Cellulose All the cellulose products come from finely ground wood chips which are then treated in a variety of ways such as boiling in acids. Methyl cellulose is an insoluble fiber which does dissolve in water. It is also an emulsifier, meaning it blends oils and water. Citrucel is methyl cellulose (MC). MC may not be appropriate for Crohn?s disease or ulcerative colitis as several medical studies have shown that certain emulsifiers dissolve the mucous lining of the colon in animals prone to Crohn?s disease. This then allows bacteria to invade the underlying tissue. Fiber and Gas Everyone has intestinal gas and that is a good thing.? It means that bacteria, hopefully the good ones, are thriving.? The normal amount of flatus passed each day depends on sex and what is eaten.? The normal number of flatus is 10-20 times a day.? When the bacteria that make intestinal gases are growing, it also means that other good bacteria are using the same fibers to grow and produce multiple health benefits, including the production of healthy short-chain fatty acids.? These substances are produced quietly in the colon and produce many health-related outcomes. Soluble fiber should always be used in a gradual manner.? If too much is consumed at any one time, then excess, but harmless, intestinal gas can occur.? People with irritable bowel syndrome are particularly prone to bloating and mild cramping.? In this instance, soluble fiber in the diet or supplement should be used in small doses and increased gradually. Finally, prebiotic fibers tend to cause the production of short-chain fatty acids which acidify the colon.? This, in turn, reduces or stops the growth of bacteria that make the smelly hydrogen sulfide gases that produce noxious flatus.? People who consume many vegetables with prebiotics or take a prebiotic fiber supplement often have non-odoriferous flatus. Fiber and Irritable Bowel Syndrome Irritable bowel syndrome (IBS) is one of the most common disorders of the lower digestive tract.? The symptoms of IBS can be quite varied.? They can be a mix of several symptoms such as constipation, diarrhea, crampy abdominal discomfort, bloating and gas.? An attack of IBS can be triggered by emotional tension and anxiety, poor dietary habits and certain medications.? It is now known that infections in the intestine can lead to long-term IBS symptoms.? Increased amounts of fiber in the diet can help relieve the symptoms of irritable bowel syndrome by producing soft, bulky stools.? This helps to normalize the time it takes for the stool to pass through the colon.? Recent medical research with newer techniques has shown some surprising and dramatic findings for IBS patients.? Specifically, there is a very significant and abnormal shift of bacteria from those that provide health benefits to those bad bacteria that we really do not want in the gut.? The technical name for this bad group of bacteria is called Firmicutes.? Along with this abnormal bacterial collection, there is a smoldering low-grade inflammation in the gut wall that may contribute to symptoms.? The goal for IBS patients should be to gradually increase the soluble dietary fibers in the diet so as to promote the growth of good bacteria and so suppress the bad ones along with the associated inflammation. IBS patients need to be careful of the amount of soluble fiber they consume.? The reason for this is that, while the good colon bacteria thrive on these fibers and produce health benefits, other gas-forming bacteria may generate excessive but harmless gas and subsequent bloating.? Thus, soluble plant fibers or a dietary prebiotic supplement should be taken in small initial doses and then gradually increased to tolerance. Fiber and Colon Polyps/Cancer Colon cancer is a major health problem. This disease is most common in Western cultures. It is not seen very often in rural cultures where the diet is mostly plant based. Usually, colon cancer starts out as a colon polyp, a benign mushroom-shaped growth. In time it grows, and in some people it becomes cancerous. Colon cancer is usually always curable if polyps are removed when found or if surgery is performed at an early stage. It is now known that people can inherit the risk of developing colon cancer, but diet is important, too. As noted, there is a very low rate of colon cancer in residents of countries where grains are unprocessed and retain their fiber. It seems that in the Western world, cancer-containing agents (carcinogens) remain in contact with the colon wall for a longer time and in higher concentrations. So, a large bulky stool may act to dilute these carcinogens by moving them through the bowel more quickly. Less carcinogenic exposure to the colon may mean fewer colon polyps and less cancer. A very current review of the entire world?s literature on the effect of fiber on colon polyps and cancer prevention has shown rather clearly that for every 10 grams of fiber added to the diet, there is a 10% reduction in incidence of colon cancer. So the recommended 30 gram fiber diet would result in a 30% less chance of getting these tumors. There are also substances produced in the colon by the good bacteria that seem to retard certain pre-cancer factors from developing. They are called short- chain fatty acids (SCFA). See above for description of SCFAs. A high fiber diet increases these substances. So, the combination of dietary fiber and the production of short-chain fatty acids have a clear health benefit. Fiber and Diverticulosis Prolonged, vigorous contraction of the colon over a long period of time may result in diverticulosis.? This increased pressure causes small and, eventually, larger ballooning pockets to form.? These pockets by themselves cause no problem.? However, sometimes they become infected (diverticulitis) or even break open (perforate) causing infection or inflammation within the abdomen (peritonitis).? A high fiber diet increases the bulk in the stool and thereby reduces the pressure within the colon.? By so doing, the formation of pockets may be reduced or possibly even stopped. In the past, many physicians were fearful that seeds as in tomatoes, nuts or berries were harmful and could get inside these pockets and rattle around, causing damage. We now know that this has never been the case and that these foods contain lots of fiber and are actually beneficial for diverticulosis patients. Certain bulking agents such as psyllium are traditional types of bulk producing supplements.? Psyllium is a soluble fiber.? Combining it with insoluble fiber as in wheat bran or corn bran (no gluten) can enhance this bulking effect even more.? A product containing a prebiotic, psyllium and wheat bran is probably a very good combination for bowel regularity. Prebiotin https://www.prebiotin.com/ Regularity/Diverticulosis is one such product. Starting a Fiber Supplement ?When consumed at recommended levels,?dietary fiber https://www.[facility]. org/healthy-lifestyle/tklwdswdm-cig-ibjgoru-eating/in-depth/fiber/art-96245499?m c_id=&utm_source=newsnetwork&utm_medium=l&utm_content=content&utm_campaign=[facility]&gabriella=[facility]&placementsite=[place]&ixitv=169702 ?is widely recognized to have health benefits, including relief of?constipation https://www.[facility].org/diseases-conditions/constipation/symptoms -causes/[facility]-20094115?mc_id=&utm_source=newsnetwork&utm_medium=l&utm_content=co ntent&utm_campaign=[facility]&gabriella=[facility]&placementsite=[place]&gbebf=210835 . Adult women 50 and younger should consume at least 25 grams of fiber a day. Women 51 and older should have at least 21 grams a day. Adult men need at least 38 grams of fiber a day if they are younger than 50 and at least 30 grams of fiber a day if they are 51 and older. Ninety percent of the [place] population consumes far below those recommendations, averaging only 15 grams of daily fiber. Fiber-rich foods include fruits, vegetables, whole grains and legumes. Many cereals, such as bran flakes, are good sources of fiber. Although fiber supplements can fill the daily fiber gap, they usually have only one type of fiber, rather than a variety of fibers and micronutrients, and they may not provide all the health benefits associated with fiber in food. Therefore, boost your fiber intake in your diet first by eating a wide variety of high-fiber foods. If you still can?t get enough fiber to meet the daily recommendation, consider using a supplement. Many fiber supplements can be used regularly [employer]. Fiber is classified as soluble or insoluble. Soluble fibers are more fermentable and may cause gas. Insoluble fibers move through the digestive system largely intact, and that can increase stool bulk. Most fiber supplements are exclusively soluble or insoluble fiber. For example, FiberCon (calcium polycarbophil) and Benefiber (wheat dextrin) are mainly soluble fiber. They tend to cause more bloating and flatulence. Citrucel (methylcellulose) is mainly insoluble fibers that are nonfermentable, so it?s less likely to contribute to bloating and gas. Psyllium husk (Metamucil and Konsyl) is rich in both soluble and insoluble fiber. Generally, fiber supplements with mainly insoluble fiber may be a better option for constipation. Before taking a fiber supplement, ask your health care provider or pharmacist to review your medications. Fiber supplements can decrease the absorption of certain medications, including drugs that treat thyroid disorders,?depression https://www.[facility].org/d iseases-conditions/depression/symptoms-causes/[facility]-36869997?mc_id=us&utm_source=n ewsnetwork&utm_medium=l&utm_content=content&utm_campaign=[facility]&gabriella=[facility] &placementsite=[place]&getgv=579526 ,?diabetes https://www.[facility].org/diseases-conditions/diabetes/symptoms-causes/[facility] 1444?mc_id=us&utm_source=newsnetwork&utm_medium=l&utm_content=content&utm_cam paign=[facility]&gabriella=[facility]&placementsite=[place]&lbnoy=883394 ,?high cholesterol https://www.[facility].org/diseases-conditions/qrmr-yoqjs-wwlrmvqvlev/symptoms-c auses/[facility]67904395?mc_id=us&utm_source=newsnetwork&utm_medium=l&utm_content=content&utm_ca mpaign=[facility]&gabriella=[facility]&placementsite=[place]&ydqou=309437 ,?seizures https://www.[facility].org/diseases-conditions/seizure/symptoms-causes/[facility] 711?mc_id=us&utm_source=newsnetwork&utm_medium=l&utm_content=content&utm_campaig n=[facility]&gabriella=[facility]&placementsite=[place]&ywtcl=544585 ?and various heart ailments. Even common medications such as aspirin, ibuprofen and penicillin can be affected by an increase in fiber. You may take your medicatio ns one hour before or two hours after eating fiber to minimize the interaction. Some fiber supplements may not be appropriate for people with certain medical conditions. For example, if you have celiac disease, you may need to stay away from fiber products derived from wheat. If you have diabetes, you may need to use a flavorless formula to avoid extra sugar. Consult your health care provider for guidance about the appropriate fiber supplement. Go slow as you begin fiber therapy. Fiber supplements may cause abdominal bloating, cramping and flatulence, especially if you start at a high dose. Begin with a low dose, gradually increasing the amount of fiber. Don?t add more than 50 grams of fiber in a supplement per day, as that may affect how your body absorbs nutrients. Your health care provider can help determine what?s right for you. Drinking plenty of water and exercising regularly can help ease constipation, too. If increasing fiber doesn?t improve your symptoms, see your health care provider. Constipation can be a symptom of various underlying medical disorders, such as pelvic floor muscle dysfunction, slow gastrointestinal motility, anatomical abnormalities or endocrine dysfunction that may require different treatment.? Activity:: See above Diet:: The above Discharge Orders Discharge Orders: Discharge Order (Routine); Ordered 04/06/23 Ordered By: Sujata Mckeon DS: Diagnosis Discharge Diagnosis (1) Hypercholesterolemia: Status: Acute (2) Essential hypertension: Status: Acute (3) Increased BMI: Status: Acute (4) Headache: Status: Chronic (5) Migraine: Status: Acute (6) Lyme disease: Status: Acute (7) Peripheral neuropathy: Status: Acute (8) Diverticula of colon: Status: Acute Asessment and Plan: The patient is seen and examined after their colonoscopy.? The patient has been able to pass gas.? They are not having abdominal pain.? They have been able to tolerate liquids and a snack.? They do not have any nausea or vomiting.? They are not having any chest pain or shortness of breath.??? They are not having any rectal bleeding. Their vital signs have been stable-see nursing notes. We discussed findings during their colonoscopy, and any biopsies that were done/ polyps that were removed. The patient will be sent a letter with any biopsy results, and when to repeat the colonoscopy.-see discharge instructions. Patient was given explicit instructions to follow-up regarding colonoscopy-refer to discharge instructions.? We reviewed resumption of medications. Patient verbalized understanding and discharged in stable and satisfactory condition- See nursing notes. (9) Cataract: (10) Hypertension:
--- NOTE | 2023-04-05 16:12 | W.COLOREPORT ---
Date of service: 04/06/23 Time of Service: 10:25 Colonoscopy Report Date of procedure: 04/06/23 Pre-op diagnosis general: History of diverticula/colorectal cancer screening Post-op diagnosis procedure note: other (diverticula) Procedure: flex-sig Surgeon: Sujata Mckeon Anesthesia Type: General:No Airway Estimated blood loss (mL): 0 Pathology: none sent Complications: None Disposition: same day Prep: Miralax/Dulcolax Procedure Description: After informed consent was obtained the patient was taken to the procedure room and placed in a left decubitous position. Monitors were applied and a time out was done. The patients name, date of , procedure, allergies to medications and metal in their body was reviewed. The patient was then sedated. Once sedated and comfortable a rectal exam was done. External exam was normal. Internal exam revealed a normal sphincter tone and no palpable masses. The scope was then introduced and retrofelexed. No internal hemorrhoids were identified. The scope was passed up the rectosigmoid valves. Once we get to the 25 cm, I can no longer pass the scope. She has had very extensive diverticular disease. She has multiple still has stool that was inspissated in the diverticula, and is now mobile, which also makes visualization difficult.. She has had a previous hysterectomy, and 3 other prior pelvic surgeries and probably has pelvic scarring.. The scope was aborted for patient's safety. The scope was removed and the patient was woken up and taken back to Same day surgery in stable condition. The patient tolerated the procedure well and there were no immediate complications. Follow up: The patient does not require any further colonoscopies. Unless they develop changes in bowel habits or other new gastrointestinal complaints. If she has any problems she should either get a barium enema or a virtual CT. Further discussion with the patient she has had no changes in her bowels. She is not anemic. She has no family history of colon cancer. She has not had adenomatous polyps. She has no red flag/warning signs and I do not think further investigation is warranted. We did discuss the importance of daily Metamucil. It is on her med list but patient says she is not taking it. She was also given a handout and we did discuss diverticular disease and the importance of avoiding straining when moving her bowels. We discussed warning signs as well and if it any of these occur she should contact us or her PCP
[2023-04-06 08:28] VITALS: BP 143/83; PULSE 67; RESP 18; TEMP 36.2; O2SAT 97
--- NOTE | 2023-04-06 08:39 | W.ANESPRE ---
General Info Date of Service Date Performed: 04/06/23 Height: 5 ft 4 in Weight: 76.4 kg Body Mass Index (BMI): 28.9 Surgical Procedure: Operation Date: 04/06/23 10:35 Proposed Procedure Side Surgeon monisha Mckeon, DO Meds Allergies and Home Medications Allergies Allergy/AdvReac Type Severity Reaction Status Date / Time Sulfa (Sulfonamide Allergy Intermediate Hives Verified 04/05/23 12:14 Antibiotics) clams AdvReac Mild GI Upset Verified 04/05/23 12:14 Home Medication Medication Instructions Recorded Psyllium [Metamucil] 1 ea PO DAILY PRN 08/18/12 multivitamin (Once Daily tablet) 1 ea PO DAILY 08/18/12 omega-3 fatty acids-fish oil 340 1 ea PO DAILY 08/18/12 mg-1,000 mg capsule (Fish Oil) aspirin 81 mg tablet,delayed 1 tab PO DAILY 06/13/16 release (Aspir-) acetaminophen 500 mg tablet 1,000 mg PO Q6H PRN 07/01/16 (Tylenol Extra Strength) loratadine 10 mg tablet 10 mg PO DAILY PRN #30 tab-caps 04/19/19 lactobacillus combination no.9 4 4,000 mmu cells PO DAILY 07/30/22 billion cell capsule (Adult 50 Plus Probiotic) lisinopril 5 mg tablet 5 mg PO DAILY #90 tab-caps 03/10/23 Current Visit Medications: Current Medications Generic Name Dose Route Start Last Admin Trade Name Freq PRN Reason Stop Dose Admin Hyoscyamine Sulfate 0.125 mg 04/06/23 04:08 Hyoscyamine 0.125 Mg Sl/Oral/Chew SL 05/06/23 04:07 DIRECTED PRN Ringer's Solution 1,000 mls @ 80 mls/hr 04/06/23 06:00 IV 05/05/23 23:59 INFUSION GERALDO IV Miscellaneous Supplies 1 each 04/06/23 06:00 Iv Access IV 05/05/23 23:59 DIRECTED GERALDO Ondansetron HCl 4 mg 04/06/23 04:08 Ondansetron 4 Mg/2 Ml Vial IVP 05/06/23 04:07 Q4H PRN PRN Nausea / Vomiting Sodium Chloride 0 ml 04/06/23 06:00 Normal Saline Flush 10 Ml Syr IV 05/05/23 23:59 PRN PRN Sodium Chloride 0 ml 04/06/23 06:00 Normal Saline 10 Ml Vial IJ 05/05/23 23:59 DIRECTED PRN Sterile Water 0 ml 04/06/23 06:00 Water,Injection,Sterile 10 Ml Vial IJ 05/05/23 23:59 DIRECTED PRN PFSH Active Problems Active Problems: Problem Status Onset Code Diverticula of colon K57.30 Preventive measure Z29.9 Nuclear sclerotic cataract of right eye H25.11 Arthritis of left knee 04/16/17 M17.12 Nondisplaced fracture of lateral malleolus of right fibula, subsequent encounter for closed fracture with routine healing 07/29/16 S82.64XD Hearing loss H91.90 Hypercholesterolemia 11/24/07 E78.00 Essential hypertension I10 Increased BMI R63.8 Pressure sensation in right ear 02/02/17 H93.8X1 Sensorineural hearing loss of both ears H90.3 Headache R51 Status post cholecystectomy Z90.49 Status post breast biopsy Z98.890 Status post abdominal hysterectomy Z90.710 Migraine G43.909 Lyme disease A69.20 History of gynecological procedure Z98.890 History of bladder repair surgery Z98.890 History of bilateral oophorectomy Z90.722 Hip pain M25.559 Right foot pain M79.671 Asymmetrical sensorineural hearing loss H90.3 Lesion of upper extremity L98.9 Peripheral neuropathy G62.9 Screening for colon cancer Z12.11 Right shoulder pain M25.511 Tendonitis of long head of biceps brachii of right shoulder M75.21 Medical History Medical History Cataract Hypertension Surgical History Surgical History VAGINAL PROLAPSE REPAIR (~03/2011) Oophrectomy, Right DX; CYST Oophrectomy, Left 03/24 LEFT Abdominal hysterectomy Cholecystectomy Biopsy of breast Bladder Surgery (~03/2011) CYSTOCELE REPAIR Tobacco Smoking/Tobacco Use Status: Never Passive smoking exposure: Yes Second hand exposure: Yes Counseling given: other Alcohol Alcohol Intake: current Alcohol intake frequency: holidays/special occasions only Substance Use Substance use: Never Substance use type: does not use Vital Signs and Lab Results Vital Signs Most Recent Vital Signs in EMR: Most Recent Vital Signs Temp Pulse Resp BP Pulse Ox 36.2 C L 67 18 143/83 H 97 04/06/23 08:28 04/06/23 08:28 04/06/23 08:28 04/06/23 08:28 04/06/23 08:28 Lab Results Blood Type / Crossmatch: No Data to Display Complete Blood Count: No Data to Display Complete Metabolic Panel: No Data to Display Liver Function Panel: No Data to Display Coagulation Panel: No Data to Display Cardiac Panel: No Data to Display Arterial Blood Gas: No Data to Display Venous Blood Gas: No Data to Display Pancreas Panel: No Data to Display Thyroid Panel: No Data to Display Infectious Disease: No Data to Display Blood Cultures: No Data to Display Toxicology Panel: No Data to Display Anesthesia Assessment and Plan Anesthesia History Personal History: No History of Anesthesia Complications Family History: No Family History of Anesthesia Complications Exercise Tolerance Exercise Tolerance: Metabolic Equivalents>4 Pertinent Negatives Pertinent Negatives: No Symptoms of GERD, No Major Cardiovascular Symptoms or Complaints, No Major Pulmonary Symptoms or Complaints and No History of CVA/TIA Cardiac & Pulmonary Exam Cardiac Exam: Normal S1/S2 Heart Sounds Pulmonary Exam: Clear Bilateral Breath Sounds Implantable Cardiac Device Does patient have a Pacemaker or an ICD?: No Airway Exam Known Difficult Airway: No Mallampati Class: 2 Mouth Opening: Normal (> 3cm) Thyromental Distance: Greater than 3 cm Neck Range of Motion: Full ROM Neck Circumference: Normal Teeth Condition: Normal Dentition ASA Classification ASA Score: ASA 2 Emergency Case?: No NPO Status NPO Status: NPO Clears >2 hours, Solids >8 hours Anesthesia Plan Resuscitation Status: Full Code Anesthesia Technique: General Anesthesia Airway Planned: Natural Airway Monitors Used: Standard Monitors
[2023-04-06 09:00] VITALS: BMI 28.9
[2023-04-06] MEDS: Lactated Ringers 1,000 ML 80 ML IV (09:20)
[2023-04-06 10:25] VITALS: BP 126/72; PULSE 60; RESP 16; TEMP 36.3; O2SAT 95
[2023-04-06 10:55] VITALS: BP 137/64; PULSE 66; RESP 18; O2SAT 95
--- NOTE | 2023-04-06 11:00 | W.ANESPOSTOP ---
Postoperative Evaluation Date, Time and Location Date Performed: 04/06/23 Time Performed: 10:37 Patient Location: Day Surgery Unit Vital Signs Most Recent Imported Vital Signs: Most Recent Vital Signs Temp Pulse Resp BP Pulse Ox 36.3 C L 60 16 126/72 95 04/06/23 10:25 04/06/23 10:25 04/06/23 10:25 04/06/23 10:25 04/06/23 10:25 Pain Score Most Recent Pain Score: Most Recent Pain Score Pain Level 0 04/06/23 10:25 Assessment Mental Status: Awake (Alert & Oriented to Patient Baseline) Airway and Respiratory Function: Patent airway with normal (patient baseline) respiratory exam Cardiovascular Function: Hemodynamically Stable Hydration Status: Adequately Hydrated Nausea & Vomiting: No Nausea or Vomiting Pain: Pt. Denies Any Pain Peripheral Nerve Block: Patient did not receive a nerve block
== END 2023-04-06 12:10 | disposition home or self-care (01) ==
LOC: SUR 08:18
PROVIDERS: PCP Family Medicine; Visit Provider Surgery
PROC: 0DJD8ZZ Inspection of Lower Intestinal Tract, Via Natural or Artificial Opening Endoscopic (ICD-10-PCS; CPT 45378; principal; 2023-04-06 10:30)
DX: Z12.11 Encounter for screening for malignant neoplasm of colon (principal); I10 Essential (primary) hypertension; K57.30 Diverticulosis of large intestine without perforation or abscess without bleeding
CPT/HCPCS: G0121; 45378

== ENCOUNTER 2023-09-08 04:41 | Outpatient (CLI) | payer MEDICARE, SELFPAY ==
[2023-09-08 11:53] LABS: CREATININE 0.7 mg/dL (0.55-1.02); Calculated LDL 122 mg/dL (<100); Cholesterol 218 mg/dL (<200); Estimated GFR 87.37 (mL/min/1.73m2); HDL Cholesterol 49 mg/dL (40-60); TSH (W/Ref FT4) 1.72 uIU/mL (0.36-3.74); Triglyceride 239 mg/dL (<150)
[2023-09-08 12:38] LABS: Vitamin B12 272 pg/mL (193-986)
[2023-09-09 09:38] LABS: Syphilis Serology (RPR) Negative (Negative)
== END 2023-09-08 04:42 | disposition home or self-care (01) ==
LOC: LBO 04:42
PROVIDERS: PCP Family Medicine; Visit Provider Family Medicine
DX: D64.9 Anemia, unspecified (principal); I10 Essential (primary) hypertension; E03.9 Hypothyroidism, unspecified; E78.5 Hyperlipidemia, unspecified
CPT/HCPCS: 36415; 80061; 82565; 82607; 84132; 84443; 86592

== ENCOUNTER 2023-12-18 10:02 | Observation (INO) | payer MEDICARE, SELFPAY ==
[2023-12-18] VITALS (26 sets, daily range): BP systolic 113–209; BP diastolic 59–116; PULSE 62–89; RESP 11–33; TEMP 36.1–36.7; O2SAT 94–98
--- NOTE | 2023-12-18 09:45 | RT.EKG_ITS ---
APPROVED REPORT Exam: Resting ECG Reason for Exam: dizziness Patient Location: E HR:75 bpm ECG Measurements Heart Rate 75 AXIS ID 131 P 8 QRSd 103 QRS 12 QT 410 T 66 QTc 458 Conclusion Sinus rhythm...normal P axis, V-rate 60- 99 Physician: no stemi, no wpw
--- NOTE | 2023-12-18 10:15 | DI.CT_ITS ---
Exam(s) CT BRAIN NECK CTA EXAM: CT BRAIN NECK CTA CLINICAL HISTORY: dizzy, room spinning, eval for bleed/stroke. TECHNIQUE: Imaging Protocol: Axial CT angiography was performed with multi-slice acquisition and mu lti-planar and/or 3D reconstructions. CONTRAST MATERIAL: Intravenous: Omnipaque 350 Contrast volume:structured data in ml COMPARISON: No exams were available for comparison FINDINGS: CTA Neck W: Aortic arch anatomy: The aortic arch anatomy is conventional and there is no significant stenosis at the origin of the great vessels off of the aortic arch. No intimal flap evident. Anterior circulation: Both common carotid arteries ascend with normal luminal diameters. At the level the carotid bulbs and proximal internal carotid arteries there is minimal plaque without hemodynamically significant stenosis evident. Internal carotid arteries are both patent in the upper neck insult base-carotid canals. Posterior circulation: Both vertebral arteries originate in conventional fashion off of the subclavian arteries and there is no obvious stenosis at the origin of the right vertebral artery. Mild stenosis at the origin of the left vertebral artery off of the left subclavian artery. No subcl earnest artery stenosis evident proximal to the vertebral artery takeoff point. Both vertebral arteries ascend with normal luminal diameters in the foramen transverse area with no e vidence of intraluminal thrombus nor dissection and no significant narrowing. At the skull base both vertebral arteries contribute to the formation of the basilar artery. CTA Brain W: Anterior circulation: Both internal carotid arteries are patent in the skull base-carotid canals as well as within the cave rnous sinuses. The supraclinoid aspects of the ICAs are patent. Both A1 segments are patent with the right being do minant. The anterior cerebral arteries are and there is no evidence of aneurysm at the level of the anterior communicating artery. Both middle cerebral arteries are patent with no evidence of significant stenosis nor intraluminal th rombus. There also no aneurysms of these vessels. Posterior circulation: The basilar artery ascends in the midline without evidence of stenosis nor dissection. Distally it g homa off patent bilateral superior cerebellar arteries. Above this level the basilar artery terminates as patent bilateral posterior cerebral arteries. There is no evidence of aneurysm at the tip of the basilar artery nor elsewhere in the inplxx-lo-Umeq is. CT BRAIN: There is no evidence of intracranial hemorrhage, mass effect, or shift of midline structures. There are no extra-axial fluid collections. Ventricles are not enlarged or shifted. There are no ring enh ancing lesions in the brain and no abnormal meningeal enhancement. There is abundant bilateral periventricular hypodensity consistent with chronic small vessel. Also l acunar infarcts noted in the anterior limb of the left internal capsule. No obvious abnormality is i n the cerebellar hemispheres nor within the jo ann, midbrain, and thalami. 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 There is mucoperiosteal thickening noted in the right maxillary sinus, not associated with a fluid le lea. Left maxillary sinus is unremarkable. Other paranasal sinuses are unremarkable as are the mast oid air cells. IMPRESSION: 1. Patent carotid arteries in the neck. No hemodynamically significant stenosis. 2. Patent vertebral arteries. 3. Patent intracranial arteries. 4. There is abundant bilateral periventricular hypodensity consistent with chronic small vessel disea se. There are no ring enhancing lesions in the brain and no abnormal meningeal enhancement. 5. If clinically indicated follow-up MRI can be performed RADIATION DOSE DELIVERED: 2,196.36mGy.cm Total DLP DATA REPOSITORY: All CT scans at this facility are submitted to the National Radiology Data Registry (NRDR) Dose Index Registry (DIR) with the [employer] (ACR). RADIATION OPTIMIZATION: All CT scans at this facility use at least one of these dose optimization te chniques: automated exposure control; mA and/or kV adjustment per patient size (includes targeted exa ms where dose is matched to clinical indication); or iterative reconstruction.
--- NOTE | 2023-12-18 10:18 | ED.GENADUL_ITS ---
Discharge Plan Disposition Patient Disposition: Admit to [facility] Condition: Stable Discharge Details Chief Complaint: [id number] Clinical Impression: Vertigo Primary Care Provider: Italo Jolly ED Provider: Gurvinder Cross Home Meds and New Rx's Prescriptions: No Action Adult 50 Plus Probiotic 4 billion cell capsule 4,000 mmu cells PO DAILY Rx Instructions: administer with a meal multivitamin [Once Daily] 1 EACH tablet 1 ea PO DAILY Fish Oil 1 EACH capsule 1 ea PO DAILY Psyllium [Metamucil] 1 EACH packet 1 ea PO DAILY PRN acetaminophen [Tylenol Extra Strength] 500 MG tablet 1,000 mg PO Q6H PRN loratadine 10 mg tablet 10 mg PO DAILY PRN MDD 10mg Qty: 30 Rx Instructions: Take daily for 2 weeks, then as needed daily. cyanocobalamin (vitamin B-12) 1,000 mcg capsule 1,000 mcg PO DAILY Qty: 90 3RF lisinopril 5 mg tablet 5 mg PO DAILY Qty: 90 3RF aspirin [Aspir-81] 81 MG tablet,delayed release (DR/EC) 1 tab PO DAILY HPI General Date/Time Provider Initiated Documentation: 12/18/23 10:18 . HPI Narrative: 78-year-old female with a past medical history of hypertension, previous breast cancer long ago which was surgically resected requiring no chemotherapy, family history of WPW, mild early memory loss, hypertension, who is on a daily aspirin, presents today for evaluation of dizziness. Patient states that this morning she was doing well, had eaten breakfast and was watching TV when suddenly she felt extremely dizzy at 9 AM when she was standing up after watching TV. She denies any tunnel vision or blacking out or syncope. She has a very hard time describing her symptomatology, but after multiple attempts describes it as a minimal headache, and my whole head feels full and off she denies any neck pain. She denies any room spinning sensation. She does admit to notable nausea. She denies any chest pain or shortness of breath. She denies any falls or trauma. She has never had symptoms like this before. No other complaints at this time. No other modifying factors. No vision changes. Related Data Home Medications Medication Instructions Recorded Confirmed Psyllium [Metamucil] 1 ea PO DAILY PRN 08/18/12 12/18/23 multivitamin (Once Daily tablet) 1 ea PO DAILY 08/18/12 12/18/23 omega-3 fatty acids-fish oil 340 1 ea PO DAILY 08/18/12 12/18/23 mg-1,000 mg capsule (Fish Oil) aspirin 81 mg tablet,delayed 1 tab PO DAILY 06/13/16 12/18/23 release (Aspir-) acetaminophen 500 mg tablet 1,000 mg PO Q6H PRN 07/01/16 12/18/23 (Tylenol Extra Strength) loratadine 10 mg tablet 10 mg PO DAILY PRN #30 tab-caps 04/19/19 12/18/23 lactobacillus combination no.9 4 4,000 mmu cells PO DAILY 07/30/22 12/18/23 billion cell capsule (Adult 50 Plus Probiotic) cyanocobalamin (vitamin B-12) 1,000 mcg PO DAILY #90 caps 09/08/23 12/18/23 1,000 mcg capsule lisinopril 5 mg tablet 5 mg PO DAILY #90 tab-caps 09/13/23 12/18/23 Previous Rx's Medication Instructions Recorded cyanocobalamin (vitamin B-12) 1,000 mcg PO DAILY #90 caps 09/08/23 1,000 mcg capsule lisinopril 5 mg tablet 5 mg PO DAILY #90 tab-caps 09/13/23 Allergies Allergy/AdvReac Type Severity Reaction Status Date / Time Sulfa (Sulfonamide Allergy Intermediate Hives Verified 12/18/23 10:43 Antibiotics) clams AdvReac Mild GI Upset Verified 12/18/23 10:43 General Stated Complaint: [id number] NALINI: 3 Review of Systems All systems reviewed & are unremarkable except as noted in HPI and below Exam Narrative Exam Narrative: 1.Const: Well-nourished, Well-developed, appearing stated age 2.Eyes: PERRL, no conjunctival injection, and symmetrical lids. Patient demonstrates fatigable unidirectional leftward horizontal nystagmus. No vertical or rotatory nystagmus. Negative test of skew. Positive head impulse test of the left. 3.ENT: Atraumatic external nose and ears. Moist MM. Neck: Symmetric, trachea midline, No thyromegaly. 4.CVS: +S1/S2, No murmurs or gallops. Peripheral pulses 2+ and equal in all extremities. Brisk capillary refill in all extremities. 5.RESP: Unlabored respiratory effort. Clear to auscultation bilaterally. No wheezes rales or rhonchi 6.GI: Soft, Nontender/Nondistended, No hepatosplenomegaly. No guarding or rebound. 7.MSK: Normocephalic/Atraumatic, Extremities w/o deformity or ttp No cyanosis or clubbing, Normal movement of all extremities 8.Skin: Warm, Dry. No rashes or lesions. 9.Neuro: dump grader II-XII grossly intact. Sensation grossly intact, no focal neurologic deficits. All 6 cardinal planes of vision are fully intact. No evidence of rotatory or vertical nystagmus. The patient demonstrated a normal tuzfaw-ykmj-fnoiyv, good dexterity. There was no evidence of dysdiadochokinesia. Patient unable to ambulate secondary to symptoms. Romberg testing was normal. Pubg-sw-nzdz testing was normal. Sensation was intact bilaterally as well as muscle strength bilaterally for all extremities. Patient was able to verbalize butter cup with no slurring, or miss pronunciation. Notably positive Emelia-Hallpike exam when sitting the patient upright 10.Psych: (AAO) x3. Appropriate mood and affect Course Vital Signs Vital signs: Vital Signs Temperature 36.7 C 12/18/23 10:03 Pulse 76 12/18/23 10:03 Respiratory Rate 18 12/18/23 10:03 Blood Pressure 157/86 H 12/18/23 10:03 Pulse Oximetry 98 12/18/23 10:03 Temperature 36.7 C 12/18/23 10:03 Temperature Source Temporal Artery Scan 12/18/23 10:03 Pulse 76 12/18/23 10:03 Respiratory Rate 18 12/18/23 10:03 Respiratory Effort Normal, Non-Labored 12/18/23 10:08 Blood Pressure 157/86 H 12/18/23 10:03 Pulse Oximetry 98 12/18/23 10:03 Oxygen Delivery Method Room Air 12/18/23 10:03 Oxygen Flow Rate 0 12/18/23 10:03 Medical Decision Making 78-year-old female with a past medical history of hypertension, previous breast cancer long ago which was surgically resected requiring no chemotherapy, family history of WPW, mild early memory loss, hypertension, who is on a daily aspirin, presents today for evaluation of dizziness. Patient states that this morning she was doing well, had eaten breakfast and was watching TV when suddenly she felt extremely dizzy at 9 AM when she was standing up after watching TV. She denies any tunnel vision or blacking out or syncope. She has a very hard time describing her symptomatology, but after m sameera coyne describes it as a minimal headache, and my whole head feels full and off she denies any neck pain. She denies any room spinning sensation. She does admit to notable nausea. She denies any chest pain or shortness of breath. She denies any falls or trauma. She has never had symptoms like this before. No other complaints at this time. No other modifying factors. No vision changes. Exam demonstrates notable horizontal fatigable unidirectional nystagmus, negative test of skew, negative head impulse test. No tinnitus. Positive Emelia- Hallpike with forward motion. Unable to perform Yelena maneuver secondary to patient's notable symptomatology. With Emelia-Hallpike maneuver patient began screaming and locking up her arms out of concern that she would fall. Symptoms are most concerning for peripheral vertigo, however due to her age differential does include but is notably less likely for cerebellar infarct. Dehydration or electrolyte abnormalities of concern. We will give 50 mg of meclizine, 500 cc normal saline bolus, evaluate for concerning etiologies, monitor closely and reassess. EKG does not show any evidence of Djgmd-Atbvcrtac-Amtzt syndrome. No evidence of abnormality on EKG otherwise. We will get a CT/CTA. 12:30 PM Patient's laboratory workup is returned, electrolytes stable, CBC unremarkable, renal function good. Troponin normal. EKG benign. CT/CTA shows no evidence of stenosis occlusion aneurysm or other acute abnormality. No evidence of large stroke. On reassessment patient still feels notably dizzy and nauseous and feels like she is going to throw up. She is unable to lean her head or sit up. She is requesting additional medications for her symptoms of dizziness. We will give a low-dose of 5 mg of Valium, however the patient may need to be admitted for continued symptom management if she does not improve. 12:55 PM During the administration of the Valium the patient had another episode of notable dizziness nausea and then vomited while laying flat. I was called to the bedside, immediately we suctioned out the mouth, sat her up, and started the nonrebreather. Upon my arrival oxygenation did drop to the 70s and there is concern for aspiration. Mouth was suctioned, and while on the nonrebreather her oxygen came up to the mid 90s on 6 L. She remained stable at this point. Will get a portable chest x-ray to evaluate for aspiration pneumonia, we will give Unasyn, monitor closely. With the aspiration event and the patient's persistent symptoms she would likely require admission for continued observation. 2:23 PM Chest x-ray negative for acute process, on reassessment patient is still notably dizzy even when she sits forward, she is not able to ambulate at all. She feels improved from before but symptoms are still quite notable in not appropriate with discharge home at this time. Oxygenation has been titrated down to 0, she is saturating well. She remains hemodynamically stable. She has received 1 dose of Unasyn. With the patient's continued symptomatology I do feel that admission is reasonable at this time. She shows no other focal neurologic deficits. I do not think that she would be an appropriate candidate for tPA or TNK if this was an ischemic event based on her symptomatology, low NIH stroke score, and symptomatology that is inconsistent with severe cerebellar stroke, and more clinically consistent at this time with peripheral vertigo. Case was discussed with Dr. Esteves, he agrees with the assessment and plan for admission for continued fluids antiemetics and antidizzy medications. I have extensively reviewed the treatment plan with the patient. I have addressed all patient concerns at this time. I have also discussed the plan with the admitting physician and they agree with the current assessment and plan and have agreed to assume responsibility for the patient. All parties demonstrate verbal understanding and agreement with our assessment and plan at this time. The documentation in this chart was dictated using [employer] dictation software. Please excuse any dictation errors. FINDINGS: Lungs: No consolidation. There is subsegmental atelectasis in the left lower ivan ng. Pleural spaces: No pleural effusion. No pneumothorax. Heart/Mediastinum: No cardiomegaly. Bones/joints: Unremarkable. IMPRESSION: No acute findings. Thank you for allowing us to participate in the care of your patient. Dictated and Authenticated by: Oniel Garrett DO 12/18/2023 2:08 PM Eastern Time ([place] & [place]) FINDINGS: ANTERIOR CIRCULATION: Right internal carotid artery: Intracranial segment is patent with no significant stenosis or occlusion. No aneurysm. There is calcification of carotid siphon. Right middle cerebral artery: No occlusion or significant stenosis. No aneurysm. Right anterior cerebral artery: No occlusion or significant stenosis. No aneurysm. Left internal carotid artery: Intracranial segment is patent with no significant stenosis. No aneurysm. This calcification of the carotid siphons in the cavernous and the paraophthalmic segment Left middle cerebral artery: No occlusion or significant stenosis. No aneurysm. Left anterior cerebral artery: No occlusion or significant stenosis. No aneurysm. POSTERIOR CIRCULATION: Right vertebral artery: No occlusion or significant stenosis. No aneurysm. Left vertebral artery: No occlusion or significant stenosis. No aneurysm. Basilar artery: No occlusion or significant stenosis. No aneurysm. Right posterior cerebral artery: No occlusion or significant stenosis. No aneurysm. Left posterior cerebral artery: No occlusion or significant stenosis. No aneurysm. HEAD: Brain: Multani-white matter differentiation is within normal limits. No mass effect or midline shift. No intracranial hemorrhage. There are moderate nonspecific patchy foci of periventricular white matter hypodensity, probably due to chronic microvascular ischemic changes. Sulci and basilar cisterns are prominent due to mild parenchymal volume loss. No extra-axial fluid collection. Cerebral ventricles: Normal. No ventriculomegaly. Bones: Unremarkable. No acute fracture. Orbital cavities: There is a right intra-ocular lens implant. Paranasal sinuses: Mild mucosal thickening in the right maxillary sinus and bilateral anterior ethmoidal air cells. Mastoid air cells: Visualized mastoids are normal. No mastoid effusion. Soft tissues: Unremarkable. IMPRESSION: 1. No stenosis or occlusion in the arteries of the tpscmj-cc-Vyhage. 2. No intracranial aneurysm. 3. No acute intracranial abnormalities on noncontrast CT. No mass effect or acute intracranial hemorrhage. 4. Moderate chronic small vessel ischemic changes, unchanged. MR brain wo 10/07/2018 3:53 PM FINDINGS: Right common carotid artery: No stenosis. No dissection or occlusion. Right internal carotid artery: No stenosis of the extracranial segment. No dissection or occlusion. Right external carotid artery: No occlusion or stenosis of the origin. Left common carotid artery: No stenosis. No dissection or occlusion. Left internal carotid artery: No stenosis of the extracranial segment. No dissection or occlusion. Left external carotid artery: No occlusion or stenosis of the origin. Right vertebral artery: No stenosis. No dissection or occlusion. Left vertebral artery: No stenosis. No dissection or occlusion. Aorta: Mild calcifications of the arch of aorta. Soft tissues: Normal. No significant soft tissue swelling. Bones/joints: No acute fracture. There are there are mild nonspecific patchy foci of ground-glass densities in the bilateral upper lobes. IMPRESSION: No stenosis or occlusion. REFERENCES: NASCET CRITERIA. The degree of stenosis in the cervical segment of the internal carotid artery is based on NASCET criteria. Normal is no stenosis. Mild is less than 50% stenosis. Moderate is 50- 69% stenosis. Severe is 70% to 99% stenosis. Total occlusion is no detectable patent lumen. Thank you for allowing us to participate in the care of your patient. Dictated and Authenticated by: Oniel Garrett DO 12/18/2023 12:20 PM Eastern Time ([place] & [place]) Quality:SDOH Health Related Social Needs: No Data to Display PFSH All Active Problems (Updated 12/18/23 @ 14:25 by Gurvinder Cross DO) Vertigo (Acute) Memory impairment (Acute) Diverticula of colon (Acute) Preventive measure (Acute) Arthritis of left knee (Acute 04/16/17) mild DJD on xray 2017 Nondisplaced fracture of lateral malleolus of right fibula, subsequent encounter for closed fracture with routine healing (Acute 07/29/16) Hearing loss (Acute) LEFT Hypercholesterolemia (Acute 11/24/07) Essential hypertension (Acute) Increased BMI (Acute) Pressure sensation in right ear (Acute 02/02/17) 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) Headache (Chronic) Status post cholecystectomy (Acute) Status post breast biopsy (Acute) Status post abdominal hysterectomy (Acute) Migraine (Acute) Lyme disease (Acute) History of gynecological procedure (Acute) History of bladder repair surgery (Acute) History of bilateral oophorectomy (Acute) Hip pain (Acute) Right foot pain (Acute) Asymmetrical sensorineural hearing loss (Acute) Lesion of upper extremity (Acute) Peripheral neuropathy (Acute) Screening for colon cancer (Acute) Right shoulder pain (Acute) Tendonitis of long head of biceps brachii of right shoulder (Acute) Medical History Cataract Hypertension Surgical History History of colonoscopy (~03/2023) flex Sig--Extensive Diverticular Dx VAGINAL PROLAPSE REPAIR (~03/2011) Oophrectomy, Right DX; CYST Oophrectomy, Left 03/24 LEFT Abdominal hysterectomy Cholecystectomy Biopsy of breast Bladder Surgery (~03/2011) CYSTOCELE REPAIR Family History Mother , age 87 Essential hypertension Father , age 59 Heart disease Brother , 80 Essential hypertension COPD (chronic obstructive pulmonary disease) Asthma Maternal Grandfather Throat cancer Paternal Grandfather Heart disease Maternal Grandmother Essential hypertension Paternal Grandmother Stroke Son No problems noted. Daughter No problems noted. Daughter No problems noted. Social History (Updated 09/08/23 @ 13:28 by Beatriz Ortega) Smoking/Tobacco Use Status: Never Second Hand Exposure: Yes Counseling given: other Smoking risk assessment performed?: Yes Alcohol Intake: never Drug use: Never Substance use type: does not use Counseling given: No Adopted: No Caregiver/Support person: No Household members: spouse Housing: house Number of Children: 4 number of grandchildren: 4 Communication Needs: Hard of Hearing and Corrective Lenses Education Level: high school Do you need help understanding health information?: Rarely current occupation: retired Pets and animals: No Sexually active: No Do you think of yourself as: straight/heterosexual Current gender identity: female What is your relationship status?: How often do you talk on the phone with friends or family?: once per week How often do you get together with friends or relatives?: decline to answer How often do you attend oriental orthodox or tenriism services?: 1-3 times per year Do you belong to any clubs or organized social groups?: no Panel score (0-1 are the most socially isolated patients): 1 What type of physical activity do you participate in: walking Duration: 15-30 minutes/day Frequency: 1-2 times per week Aliyah/Church: Non restoration Special aliyah needs: No Seatbelt use: always Helmet use: No Drive intox or ride w/intox patrol driver: No Firearms in home: No Do you feel safe at home: Yes Do you feel safe in your relationship?: Yes Victim of physical abuse: No Victim of emotional abuse: No Victim of sexual abuse: No Would you like helpful sources: No
[2023-12-18] MEDS: Meclizine 25 MG TAB 50 MG PO (10:32)
[2023-12-18] MEDS: Normal Saline 500 ML IV (10:32)
[2023-12-18] MEDS: Ondansetron 4 MG/2 ML VIAL IVP (10:32)
[2023-12-18 10:45] LABS: Abs Immature Grans 0.03 10^3/uL (0.0-0.06); Absolute Basophil Count 0.01 10^3/uL (0.0-0.2); Absolute Eosinophil Count 0.07 10^3/uL (0.0-0.7); Absolute Lymphocyte Count 1.72 10^3/uL (1.2-3.4); Absolute Monocyte Count 0.71 10^3/uL (0.1-0.8); Absolute Neutrophil Count 5.45 10^3/uL (1.2-6.7); Basophils % 0.1 %; Eosinophils % 0.9 %; HCT 40.1 % (36.0-46.0); HGB 13.9 g/dL (11.2-15.7); Immature Grans % 0.4 %; Lymphocytes % 21.5 %; MCH 31.8 pg (27.0-33.0); MCHC 34.7 % (32.0-36.0); MCV 92 fL (80-95); MPV 9.8 fL (8.0-11.0); Monocytes % 8.9 %; Neutrophils % 68.2 %; Platelet Count 177 10^3/uL (130-400); RBC 4.37 10^6/uL (3.93-5.22); RDW 12.4 % (11.7-14.6); RDW-SD 41.9 fL; WBC 7.99 10^3/uL (4.4-10.8)
[2023-12-18 11:03] LABS: INR 1.1 (0.9-1.1); PTT Activated 25.9 sec (23.6-32.8)
[2023-12-18 11:09] LABS: ALT 29 U/L (14-59); AST 21 U/L (15-37); Albumin 3.7 g/dL (3.4-5.0); Alkaline Phosphatase 43 U/L (46-116); Anion Gap 6.8 mmol/L (3-11); BUN 13 mg/dL (7-18); Bilirubin, Total 0.63 mg/dL (0.2-1.0); CO2 27.2 mmol/L (21.0-32.0); CREATININE 0.7 mg/dL (0.55-1.02); Calcium 9.1 mg/dL (8.5-10.1); Chloride 105 mmol/L (98-107); Estimated GFR 87.37 (mL/min/1.73m2); Glucose 115 mg/dL (74-106); Potassium 3.8 mmol/L (3.5-5.1); Sodium 139 mmol/L (136-145); TSH (W/Ref FT4) 2.26 uIU/mL (0.36-3.74); Total Protein 7.1 g/dL (6.4-8.2); Troponin I < 50 ng/L (< or =60)
[2023-12-18] MEDS: Normal Saline - Diluent 50 ML VIAL IJ (11:30)
[2023-12-18] MEDS: Normal Saline Flush 10 ML SYR IVP ×2 (11:31→19:17)
[2023-12-18] MEDS: Omnipaque 350 MG/ML 100 ML BTL IJ (11:32)
--- NOTE | 2023-12-18 12:21 | DI.VRAD_ITS ---
PROCEDURE INFORMATION: Exam: CTA Head Without And With Contrast, Arteriography Exam date and time: 12/18/2023 11:44 AM Age: 78 years old Clinical indication: Other: Dizzy, room spinning, eval for bleed/stroke TECHNIQUE: Imaging protocol: Computed tomographic angiography of the head without and with contrast. Exam focused on the arteries. 3D rendering (Not supervised by radiologist): MIP and/or 3D reconstructed images were created by the technologist. Contrast material: OMNIPAQUE 350; Contrast volume: 85 ml; Contrast route: INTRAVENOUS (IV); Other technique: STROKE PROTOCOL was implemented. COMPARISON: MR brain wo 10/07/2018 3:53 PM FINDINGS: ANTERIOR CIRCULATION: Right internal carotid artery: Intracranial segment is patent with no significant stenosis or occlusion. No aneurysm. There is calcification of carotid siphon. Right middle cerebral artery: No occlusion or significant stenosis. No aneurysm. Right anterior cerebral artery: No occlusion or significant stenosis. No aneurysm. Left internal carotid artery: Intracranial segment is patent with no significant stenosis. No aneurysm. This calcification of the carotid siphons in the cavernous and the paraophthalmic segment Left middle cerebral artery: No occlusion or significant stenosis. No aneurysm. Left anterior cerebral artery: No occlusion or significant stenosis. No aneurysm. POSTERIOR CIRCULATION: Right vertebral artery: No occlusion or significant stenosis. No aneurysm. Left vertebral artery: No occlusion or significant stenosis. No aneurysm. Basilar artery: No occlusion or significant stenosis. No aneurysm. Right posterior cerebral artery: No occlusion or significant stenosis. No aneurysm. Left posterior cerebral artery: No occlusion or significant stenosis. No aneurysm. HEAD: Brain: Multani-white matter differentiation is within normal limits. No mass effect or midline shift. No intracranial hemorrhage. There are moderate nonspecific patchy foci of periventricular white matter hypodensity, probably due to chronic microvascular ischemic changes. Sulci and basilar cisterns are prominent due to mild parenchymal volume loss. No extra-axial fluid collection. Cerebral ventricles: Normal. No ventriculomegaly. Bones: Unremarkable. No acute fracture. Orbital cavities: There is a right intra-ocular lens implant. Paranasal sinuses: Mild mucosal thickening in the right maxillary sinus and bilateral anterior ethmoidal air cells. Mastoid air cells: Visualized mastoids are normal. No mastoid effusion. Soft tissues: Unremarkable. IMPRESSION: 1. No stenosis or occlusion in the arteries of the [id number]. 2. No intracranial aneurysm. 3. No acute intracranial abnormalities on noncontrast CT. No mass effect or acute intracranial hemorrhage. 4. Moderate chronic small vessel ischemic changes, unchanged. ASSESSMENT: ASPECTS ([place] Stroke Program Early CT Score) is 10. PROCEDURE INFORMATION: Exam: CTA Neck Without And With Contrast Exam date and time: 12/18/2023 11:44 AM Age: 78 years old Clinical indication: Other: Dizzy, room spinning, eval for bleed/stroke TECHNIQUE: Imaging protocol: Computed tomographic angiography of the neck without and with contrast. Exam focused on the cervical segments of the vasculature. 3D rendering (Not supervised by radiologist): MIP and/or 3D reconstructed images were created by the technologist. Contrast material: OMNIPAQUE 350; Contrast volume: 85 ml; Contrast route: INTRAVENOUS (IV); COMPARISON: MR brain wo 10/07/2018 3:53 PM FINDINGS: Right common carotid artery: No stenosis. No dissection or occlusion. Right internal carotid artery: No stenosis of the extracranial segment. No dissection or occlusion. Right external carotid artery: No occlusion or stenosis of the origin. Left common carotid artery: No stenosis. No dissection or occlusion. Left internal carotid artery: No stenosis of the extracranial segment. No dissection or occlusion. Left external carotid artery: No occlusion or stenosis of the origin. Right vertebral artery: No stenosis. No dissection or occlusion. Left vertebral artery: No stenosis. No dissection or occlusion. Aorta: Mild calcifications of the arch of aorta. Soft tissues: Normal. No significant soft tissue swelling. Bones/joints: No acute fracture. There are there are mild nonspecific patchy foci of ground-glass densities in the bilateral upper lobes. IMPRESSION: No stenosis or occlusion. REFERENCES: NASCET CRITERIA. The degree of stenosis in the cervical segment of the internal carotid artery is based on NASCET criteria. Normal is no stenosis. Mild is less than 50% stenosis. Moderate is 50-69% stenosis. Severe is 70% to 99% stenosis. Total occlusion is no detectable patent lumen. Dictated and Authenticated by: Oniel Garrett MD. Ordering:MATT Hollins MD
[2023-12-18] MEDS: diazePAM 10 MG/2 ML SYR 5 MG IVP (12:36)
--- NOTE | 2023-12-18 12:53 | NUR.NOTE ---
Nursing Note: 1243 patient had x1 emesis family alerted staff of episode by using call light. When this RN walked in to room patient appears dusky with spo2 76% RN. Patient had another emesis. NRB applied @ 15L/min O2 incresed to 93% Provider & RT called to room. Patient has venti mask @ 5lpm @ spo2 98%
--- NOTE | 2023-12-18 12:55 | RESPIRATORY ---
Called by ED to assess patient. Patient Sp02 dropped post possible aspiration episode. Placed patient on oxymask and able to wean from 15L to 6L Sp02 94-95%.
[2023-12-18] MEDS: Metoclopramide 10 MG/2 ML VIAL 20 MG IVP (13:10)
--- NOTE | 2023-12-18 13:13 | DI.RAD_ITS ---
Exam(s) XR PORTABLE CHEST AP EXAM: XR PORTABLE CHEST AP CLINICAL HISTORY: aspiration event. TECHNIQUE: 2D digital imaging was performed. COMPARISON: No exams were available for comparison FINDINGS: Single AP portable view. Heart size is upper normal. The mediastinum is not widened. Lungs are clear. No infiltrates nor obvious pleural effusions. IMPRESSION: No acute pulmonary findings on this single AP portable view of the chest. DATA REPOSITORY: RADIATION DOSE DELIVERED:
[2023-12-18] MEDS: AMPICILLIN/SULBACTAM 3 GM in Normal Saline 100 ML IVPB (13:15)
--- NOTE | 2023-12-18 14:08 | DI.VRAD_ITS ---
PROCEDURE INFORMATION: Exam: XR Chest Exam date and time: 12/18/2023 1:11 PM Age: 78 years old Clinical indication: Other: Aspiration event TECHNIQUE: Imaging protocol: Radiologic exam of the chest. Views: 1 view. COMPARISON: CT BRAIN NECK CTA 12/18/2023 11:44 AM FINDINGS: Lungs: No consolidation. There is subsegmental atelectasis in the left lower lung. Pleural spaces: No pleural effusion. No pneumothorax. Heart/Mediastinum: No cardiomegaly. Bones/joints: Unremarkable. IMPRESSION: No acute findings. Dictated and Authenticated by: Oniel Garrett MD. Ordering:MATT Hollins MD
[2023-12-18 14:12] LABS: Troponin I < 50 ng/L (< or =60)
--- NOTE | 2023-12-18 14:54 | HPE_ITS ---
<Statement entered by Yordy Melendez - 12/19/23 07:53> I agree the the patient's clear positional trigger and examination are highly consistent with BPPV. However the severity and persistence of her vertigo along with her baseline risk make it difficult to rule out posterior circulation CVA. The presentation is less c/w vestibulitis or Meniere's. MRI may not be necessary if her symptoms resolve with vestibular maneuvers. Date of service: 12/18/23 Time of Service: 14:54 Assessment and Plan Assessment and plan (1) Vertigo: Status: Acute Assessment and plan: Head CT negative Neck CTA negative The patient never had a similar episode, lingering small headache and inability to tolerate oral intake at the time of admission despite antiemietic and H1 treatments Most likely peripheral vertigo Dimenhydrinate PRN Ondansetron PRN Lorazepam PRN MRI to r/u cerebellar stroke on Wednesday -Will maintain her home ASA -Lipitor 40 mg po -Lipid panel ; lipids in 08/2023 were elevated -A1C Considering echo with bubble (2) Nausea & vomiting: Status: Acute Assessment and plan: Antiemetics PRN as above LR at 50 cc/hours Chest XR negative for pneumonia but d/t aspiration an risk of pneumonistis if the patient still requires O2 supplementation will continue Unasyn intiated in the ED for 2 days and reevaluate (3) Memory impairment: Status: Acute Assessment and plan: not on meds at home (4) Hypercholesterolemia: Status: Acute Assessment and plan: not on statin or other antihypercholesterolemia medicine/ therapy Takes fish oil at home (5) Essential hypertension: Status: Acute Assessment and plan: On lisinopril (6) Hearing loss: Status: Acute Assessment and plan: Earing aids No tinnitus Dicussed with Dr. Melendez History of Present Illness History of Present Illness Chief Complaint: Dizziness, vertigo, nausea N arrative: This is a patient with past medical history of dementia, breast cancer treated with excision manage requiring chemotherapy, mid early memory loss, taking ASA, presented today in [facility] via EMS for evaluation of dizziness. Patient reported sudden onset of dizziness while watching TV and standing up; stating that she was feeling fine prior to this event w/o problems with her ADL's.The patient denied tunnel vision, blacking out, syncope, neck pain, . The ED provider's noted mentioned that the patient had difficulty describing her symptomatology but then sated minimal headache, and my whole head feels full and off. Exam in the ED demonstrated horizontal unidirectional, nystagmus,negative skew and head impulse test, positive Emelia-Hallpike with forward motion with patient screaming that she was falling and locking her arms during forward motion . No neurological exam was negative.The ED provider expressed concerned for peripheral vertigo with differentials of cerebellar infarct , dehydration and electrolyte abnormality. The patient was treated with meclizine 50 mg po and NS [address] and neck CTA were negative except for evidence consistent with small vessel disease in the ED. Laboratory work was unremarkable. On reassessment the patient was still symptomatic and during the administration of Valium 5mg, the patient vomited while lying flat with saturation in the 70% with recovery on Oxygen supplementation at 6l for saturation in the mid 90's. Chest XR, completed and negative for acute findings. EKG showed no evidence of STEMI, no ST segment depression. The hospitalist was consulted and the patient will be admitted to medical surgical floor for management and evaluation of dizziness, vertigo, nausea, vomiting. The patient denied change in her hearing, unsteady gait, change in vision, hematochenia or melena at home.Reported only vomiting in the ED while asleep. 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 The patient denies history of stroke, NH, takes aspirin low dose daily which was never changed by PCP. Review of Systems All systems reviewed & are unremarkable except as noted in HPI and below PFSH All Active Problems (Updated 12/18/23 @ 16:18 by Cady Birmingham APRN) Nausea & vomiting (Acute) Vertigo (Acute) Memory impairment (Acute) Diverticula of colon (Acute) Preventive measure (Acute) Arthritis of left knee (Acute 04/16/17) mild DJD on xray 2016 Nondisplaced fracture of lateral malleolus of right fibula, subsequent encounter for closed fracture with routine healing (Acute 07/29/16) Hearing loss (Acute) LEFT Hypercholesterolemia (Acute 11/24/07) Essential hypertension (Acute) Increased BMI (Acute) Pressure sensation in right ear (Acute 02/02/17) 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) Headache (Chronic) Status post cholecystectomy (Acute) Status post breast biopsy (Acute) Status post abdominal hysterectomy (Acute) Migraine (Acute) Lyme disease (Acute) History of gynecological procedure (Acute) History of bladder repair surgery (Acute) History of bilateral oophorectomy (Acute) Hip pain (Acute) Right foot pain (Acute) Asymmetrical sensorineural hearing loss (Acute) Lesion of upper extremity (Acute) Peripheral neuropathy (Acute) Screening for colon cancer (Acute) Right shoulder pain (Acute) Tendonitis of long head of biceps brachii of right shoulder (Acute) Medical History Cataract Hypertension Surgical History History of colonoscopy (~03/2023) flex Sig--Extensive Diverticular Dx VAGINAL PROLAPSE REPAIR (~03/2011) Oophrectomy, Right DX; CYST Oophrectomy, Left 03/24 LEFT Abdominal hysterectomy Cholecystectomy Biopsy of breast Bladder Surgery (~03/2011) CYSTOCELE REPAIR Family History Mother , age 87 Essential hypertension Father , age 59 Heart disease Brother , 80 Essential hypertension COPD (chronic obstructive pulmonary disease) Asthma Maternal Grandfather Throat cancer Paternal Grandfather Heart disease Maternal Grandmother Essential hypertension Paternal Grandmother Stroke Son No problems noted. Daughter No problems noted. Daughter No problems noted. Social History (Updated 09/08/23 @ 13:28 by Beatriz Ortega) Smoking/Tobacco Use Status: Never Second Hand Exposure: Yes Counseling given: other Smoking risk assessment performed?: Yes Alcohol Intake: never Drug use: Never Substance use type: does not use Counseling given: No Adopted: No Caregiver/Support person: No Household members: spouse Housing: house Number of Children: 4 number of grandchildren: 4 Communication Needs: Hard of Hearing and Corrective Lenses Education Level: high school Do you need help understanding health information?: Rarely current occupation: retired Pets and animals: No Sexually active: No Do you think of yourself as: straight/heterosexual Current gender identity: female What is your relationship status?: How often do you talk on the phone with friends or family?: once per week How often do you get together with friends or relatives?: decline to answer How often do you attend congregation or presybeterian services?: 1-3 times per year Do you belong to any clubs or organized social groups?: no Panel score (0-1 are the most socially isolated patients): 1 What type of physical activity do you participate in: walking Duration: 15-30 minutes/day Frequency: 1-2 times per week Aliyah/Voodoo: Non oriental orthodox Special aliyah needs: No Seatbelt use: always Helmet use: No Drive intox or ride w/intox tilt tray driver: No Firearms in home: No Do you feel safe at home: Yes Do you feel safe in your relationship?: Yes Victim of physical abuse: No Victim of emotional abuse: No Victim of sexual abuse: No Would you like helpful sources: No Meds Allergies and Home Medications Allergies Allergy/AdvReac Type Severity Reaction Status Date / Time Sulfa (Sulfonamide Allergy Intermediate Hives Verified 12/18/23 10:43 Antibiotics) clams AdvReac Mild GI Upset Verified 12/18/23 10:43 Home Medications Medication Instructions Recorded Confirmed Type Psyllium [Metamucil] 1 ea PO DAILY PRN 08/18/12 12/18/23 History multivitamin (Once Daily tablet) 1 ea PO DAILY 08/18/12 12/18/23 History omega-3 fatty acids-fish oil 340 1 ea PO DAILY 08/18/12 12/18/23 History mg-1,000 mg capsule (Fish Oil) aspirin 81 mg tablet,delayed 1 tab PO DAILY 06/13/16 12/18/23 History release (Aspir-) acetaminophen 500 mg tablet 1,000 mg PO Q6H PRN 07/01/16 12/18/23 History (Tylenol Extra Strength) loratadine 10 mg tablet 10 mg PO DAILY PRN #30 tab-caps 04/19/19 12/18/23 History lactobacillus combination no.9 4 4,000 mmu cells PO DAILY 07/30/22 12/18/23 History billion cell capsule (Adult 50 Plus Probiotic) cyanocobalamin (vitamin B-12) 1,000 mcg PO DAILY #90 caps 09/08/23 12/18/23 Rx 1,000 mcg capsule lisinopril 5 mg tablet 5 mg PO DAILY #90 tab-caps 09/13/23 12/18/23 Rx Exam Narrative Exam Narrative: Constitutional The patient is in bed, moves carefully and holds her head HENMT: Head is atraumatic, normocephalic, no lymphadenopathy. Facial structures with normal appearance Eyes: Well aligned, Vestibulo-occular reflex is negative Direction of nystagmus change is negative Skew deviation testing negative Neck: Normal ROM, no meningeal signs, no pain Neuro:alert and oriented to self, person, place time and situation. No neurological focal deficit, PERRLA 2 Chest:Chest is symmetrical and normal appearance Resp: clear lung bilaterally Cardio: regular rhythm, S1, S2,bilateral radial and dorsalis pedis pulses are positive GI: Abdomen is not distended, soft and non tender, bowel sounds are present : Negative Costovertebral angle tenderness Integumentary: No skin lesions or rash Extremities: strength 5/5 to bilateral lower and upper extremities Psych: RASS 0, congruent mood and normal affect. Results Labs 12/18/23 10:35 12/18/23 10:35 Labs: Laboratory Results - last 24 hr 12/18/23 12/18/23 10:35 13:49 WBC 7.99 RBC 4.37 Hgb 13.9 Hct 40.1 MCV 92 MCH 31.8 MCHC 34.7 RDW 12.4 Plt Count 177 MPV 9.8 Immature Gran % 0.4 Neutrophils % 68.2 Lymphocytes % 21.5 Monocytes % 8.9 Eosinophils % 0.9 Basophils % 0.1 Nucleated RBC % 0.0 Absolute Neutrophils 5.45 Absolute Lymphocytes 1.72 Absolute Monocytes 0.71 Absolute Eosinophils 0.07 Absolute Basophils 0.01 PT 11.0 INR 1.1 APTT 25.9 Sodium 139 Potassium 3.8 Chloride 105 Carbon Dioxide 27.2 Anion Gap 6.8 BUN 13 Creatinine 0.7 Est GFR (CKD-EPI 2020) 87.37 Glucose 115 H Calcium 9.1 Total Bilirubin 0.63 AST 21 ALT 29 Alkaline Phosphatase 43 L Troponin I < 50 < 50 Total Protein 7.1 Albumin 3.7 TSH 2.26 Last Vital Signs Temp 36.7 C 12/18/23 10:03 Pulse 85 12/18/23 12:46 Resp 14 12/18/23 12:46 BP 209/99 H 12/18/23 12:46 Pulse Ox 98 12/18/23 10:03 Time Spent Time spent with Patient: >75 minutes Time was spent: preparing to see the patient(eg.review tests), obtaining and/or reviewing separately otained hiistory, ordering medications,tests, procedures, referring, communicating with other health manager managed care, indepentently interpreting results, counseling the patient and care coordination
--- NOTE | 2023-12-18 16:17 | NUR.NOTE ---
Nursing Note: Patient arrived to the floor, alert and orienated, reports having vomited, in ED, dirty shirt removed, patient assisted with clean up and gown applied. Patient reports still feeling dizzy and a little nausea
[2023-12-18 16:45] LABS: COVID-19 PCR Negative (Negative); Influenza A PCR Negative (Negative); Influenza B PCR Negative (Negative); RSV PCR Negative (Negative)
--- NOTE | 2023-12-18 17:09 | W.PC.ACHO ---
Registration Status: ADM NORA Primary Language: Preferred Language: Lao ED Information & Data Chief Complaint [id number] 12/18/23 10:21 Triage Note Patient complaining of 12/18/23 10:03 sudden onset of dizziness that started this morning Medical / Surgical History (Last Reviewed 08/26/23 @ 14:33 by Raymundo Ramirez MD) Cataract Hypertension (Last Reviewed 08/26/23 @ 14:33 by Raymundo Ramirez MD) History of colonoscopy (~03/2023) VAGINAL PROLAPSE REPAIR (~03/2011) Oophrectomy, Right Oophrectomy, Left Abdominal hysterectomy Cholecystectomy Biopsy of breast Bladder Surgery (~03/2011) Most Recent Vital Signs Temperature 36.2 C L 12/18/23 16:31 Temperature Source Temporal Artery Scan 12/18/23 16:31 Pulse 62 12/18/23 16:31 Pulse Rhythm Regular 12/18/23 16:21 Pulse 70 12/18/23 15:15 Respiratory Rate 16 12/18/23 16:31 Respiratory Effort Normal 12/18/23 16:21 Respiratory Depth Normal 12/18/23 16:21 Respiratory Pattern Normal 12/18/23 16:21 Blood Pressure 142/83 H 12/18/23 16:31 Blood Pressure Mean 100 12/18/23 15:30 Pulse Oximetry 98 12/18/23 16:31 Oxygen Delivery Method Room Air 12/18/23 16:31 Oxygen Flow Rate 0 12/18/23 16:31 Pain Level 0 12/18/23 16:31 Allergies Sulfa (Sulfonamide Antibiotics) Allergy (Intermediate, Verified 12/18/23 10:43) Hives clams Adverse Reaction (Mild, Verified 12/18/23 10:43) GI Upset Precautions Isolation Radiation precaution 12/18/23 10:08 IV IV Catheter Type [Right Saline Lock Antecubital] IV Catheter Gauge [Right 20 Antecubital] Diet Orders Category Date Time Status Heart Healthy Eating [DIET] Nutrition 12/18/23 Dinner Active Diagnostics 12/18/23 12/18/23 12/18/23 Range/Units 16:00 13:49 10:35 WBC 7.99 (4.4-10.8) 10^3/uL RBC 4.37 (3.93-5.22) 10^6/uL Hgb 13.9 (11.2-15.7) g/dL Hct 40.1 (36.0-46.0) % MCV 92 (80-95) fL MCH 31.8 (27.0-33.0) pg MCHC 34.7 (32.0-36.0) % RDW 12.4 (11.7-14.6) % Plt Count 177 (130-400) 10^3/uL MPV 9.8 (8.0-11.0) fL Immature Gran % 0.4 % Neutrophils % 68.2 % Lymphocytes % 21.5 % Monocytes % 8.9 % Eosinophils % 0.9 % Basophils % 0.1 % Nucleated RBC % 0.0 (0.0-0.3) % Absolute Neutrophils 5.45 (1.2-6.7) 10^3/uL Absolute Lymphocytes 1.72 (1.2-3.4) 10^3/uL Absolute Monocytes 0.71 (0.1-0.8) 10^3/uL Absolute Eosinophils 0.07 (0.0-0.7) 10^3/uL Absolute Basophils 0.01 (0.0-0.2) 10^3/uL PT 11.0 (9.1-11.1) sec INR 1.1 (0.9-1.1) APTT 25.9 (23.6-32.8) sec Sodium 139 (136-145) mmol/L Potassium 3.8 (3.5-5.1) mmol/L Chloride 105 (98-107) mmol/L Carbon Dioxide 27.2 (21.0-32.0) mmol/L Anion Gap 6.8 (3-11) mmol/L BUN 13 (7-18) mg/dL Creatinine 0.7 (0.55-1.02) mg/dL Est GFR (CKD-EPI 2020) 87.37 (mL/min/1.73m2) Glucose 115 H (74-106) mg/dL Calcium 9.1 (8.5-10.1) mg/dL Total Bilirubin 0.63 (0.2-1.0) mg/dL AST 21 (15-37) U/L ALT 29 (14-59) U/L Alkaline Phosphatase 43 L (46-116) U/L Troponin I < 50 < 50 (< or =60) ng/L Total Protein 7.1 (6.4-8.2) g/dL Albumin 3.7 (3.4-5.0) g/dL TSH 2.26 (0.36-3.74) uIU/mL COVID-19 Source Not Applicable SARS-CoV-2 (PCR) Negative (Negative) Influenza Type A (PCR) Negative (Negative) Influenza Type B (PCR) Negative (Negative) RSV (PCR) Negative (Negative) Intake and Output - 24 Hour Total 12/18/23 09:47 thru 12/18/23 13:48 Intake Total 100 Output Total 600 Balance -500 Weight 79.5 kg Intake: IV 100 Output: Urine 600 Falls Risk Assessment History of Falls No History 12/18/23 10:43 Contributing Factors No Factors 12/18/23 10:43 Ambulatory Aids Independent 12/18/23 10:43 Tubes/Lines None 12/18/23 10:43 Gait Evaluation No gait disturbance 12/18/23 10:43 Cognition No cognitive impairment 12/18/23 10:43 Fall Total Score 0 12/18/23 10:43 Level of Risk Standard/Low Risk 12/18/23 10:43 Problems (Last Reviewed 08/26/23 @ 14:33 by Raymundo Ramirez MD) Nausea & vomiting (Acute) Vertigo (Acute) Memory impairment (Acute) Hearing loss (Acute) Hypercholesterolemia (Acute 11/24/07) Essential hypertension (Acute) Notes 12/18/23 16:17 Nursing Notes by Paulina Lawler Nursing Note: Patient arrived to the floor, alert and orienated, reports having vomited, in ED, dirty shirt removed, patient assisted with clean up and gown applied. Patient reports still feeling dizzy and a little nausea Initialized on 12/18/23 16:17 - END OF NOTE 12/18/23 12:55 Respiratory by Kori Houston Called by ED to assess patient. Patient Sp02 dropped post possible aspiration episode. Placed patient on oxymask and able to wean from 15L to 6L Sp02 94-95%. Initialized on 12/18/23 12:55 - END OF NOTE 12/18/23 12:53 Nursing Notes by Patience Barney Nursing Note: 1243 patient had x1 emesis family alerted staff of episode by using call light. When this RN walked in to room patient appears dusky with spo2 76% RN. Patient had another emesis. NRB applied @ 15L/min O2 incresed to 93% Provider & RT called to room. Patient has venti mask @ 5lpm @ spo2 98% Initialized on 12/18/23 12:53 - END OF NOTE v v v v v v v v v Sending and/or Receiving Nurses: Please use comment section below to note any information pertinent to the patient hand-off not included above. Information / Comments: Patient alert and orientated, presented with complaints of dizziness, and nausea that began in the morning. Patient has received IV fluid, antiemetic, was straight cath x1 for inability to void for 600ml, patient had one episode of decreased 02 saturation requiring oxygen. Patient has returned to baseline and currently on room air. Report received from: JULIAN Morin
[2023-12-18] MEDS: Enoxaparin 40 MG/0.4 ML SYR SC (19:17)
[2023-12-18] MEDS: Lactated Ringers 1,000 ML 75 ML IV (19:17)
[2023-12-18] MEDS: Atorvastatin 40 MG TAB PO (19:18)
[2023-12-19 06:30] LABS: Abs Immature Grans 0.02 10^3/uL (0.0-0.06); Absolute Basophil Count 0.01 10^3/uL (0.0-0.2); Absolute Eosinophil Count 0.07 10^3/uL (0.0-0.7); Absolute Lymphocyte Count 2.38 10^3/uL (1.2-3.4); Absolute Monocyte Count 0.74 10^3/uL (0.1-0.8); Absolute Neutrophil Count 4.31 10^3/uL (1.2-6.7); Basophils % 0.1 %; Eosinophils % 0.9 %; HCT 39.1 % (36.0-46.0); HGB 13.4 g/dL (11.2-15.7); Immature Grans % 0.3 %; Lymphocytes % 31.6 %; MCH 31.6 pg (27.0-33.0); MCHC 34.3 % (32.0-36.0); MCV 92 fL (80-95); MPV 10.2 fL (8.0-11.0); Monocytes % 9.8 %; Neutrophils % 57.3 %; Platelet Count 178 10^3/uL (130-400); RBC 4.24 10^6/uL (3.93-5.22); RDW 12.5 % (11.7-14.6); RDW-SD 42.5 fL; WBC 7.53 10^3/uL (4.4-10.8)
[2023-12-19 06:45] LABS: Anion Gap 6.9 mmol/L (3-11); BUN 10 mg/dL (7-18); CO2 30.1 mmol/L (21.0-32.0); CREATININE 0.6 mg/dL (0.55-1.02); Calcium 8.7 mg/dL (8.5-10.1); Chloride 107 mmol/L (98-107); Estimated GFR 90.68 (mL/min/1.73m2); Glucose 91 mg/dL (74-106); Magnesium 1.9 mg/dL (1.8-2.4); Potassium 3.6 mmol/L (3.5-5.1); Sodium 144 mmol/L (136-145)
[2023-12-19 06:52] LABS: Hemoglobin A1C 5.7 % (<5.7)
[2023-12-19 06:59] LABS: Calculated LDL 97 mg/dL (<100); Cholesterol 181 mg/dL (<200); HDL Cholesterol 42 mg/dL (40-60); Triglyceride 214 mg/dL (<150)
[2023-12-19 07:48] VITALS: BP 133/68; PULSE 72; RESP 20; TEMP 37.5; O2SAT 97
[2023-12-19] MEDS: Normal Saline Flush 10 ML SYR IVP ×2 (07:52→21:11)
[2023-12-19] MEDS: Lactobacillus Acidophilus CAP 1 CAP PO (07:52)
[2023-12-19] MEDS: Omega-3 Fatty Acids 1000 MG CAP PO (07:52)
[2023-12-19] MEDS: Aspirin E.C. 81 MG TABEC PO (07:53)
[2023-12-19] MEDS: Lisinopril 5 MG TAB PO (07:53)
[2023-12-19] MEDS: Multivitamin TAB 1 TAB PO (07:53)
[2023-12-19] MEDS: Cyanocobalamin 500 MCG TAB 1000 MCG PO (07:53)
[2023-12-19] MEDS: Lactated Ringers 1,000 ML 75 ML IV (08:00)
--- NOTE | 2023-12-19 11:21 | PT.INIE ---
PT Notes Visit Reasons: vertigo,nausea,vomiting,aspiration Inpatient Physical Therapy Evaluation Date: 12/19/2023 Referring Doctor: Cady Birmingham PT Orders: PT CONSULT: Fall Safety Assessment Precautions: Nausea and vomiting secondary to vertigo Patient Profile/Admitting Diagnosis: Vertigo PMHX: History of breast cancer, dementia Social History/Home Situation: Lives with , has stairs that she manages inside and out of her home with ease Current Functional Limitations: States she is fully independent, drives her and her , grocery shops Equipment Owned/DME: None, does mention using a ski pole when walking the trails in [place] Subjective: Pt states that she experienced a sudden onset of dizziness and room spinning sensations after getting up yesterday morning. She had no symptoms prior to this occurrence. She had no symptoms getting out of bed or rolling in bed yesterday morning. She was transported to the ED via EMS where she was severely nauseous and vomited. Objective: General Observation: Laying supine, appearing somewhat anxious Mental Status: A+Ox4 Pain: None Vestibular exam: Negative Emelia Hallpike bilaterally, negative head impulse, normal smooth pursuit, normal saccades, normal convergence/divergence, negative skew deviation ROM: Cervical: Limited extension, normal flexion/rotation/side bending Right Upper Extremity: WFL Left Upper Extremity: WFL Right Lower Extremity: WNL Left Lower Extremity: WNL Strength: Right Upper Extremity: Grossly 4+/5 Left Upper Extremity: Grossly 4+/5 Right Lower Extremity: Grossly 4+/5 Left Lower Extremity: Grossly 4+/5 Sensation: Full bilaterally Coordination: Heel to alcantara test normal bilaterally, finger to nose test normal bilateral, dysdiadochokinesia testing normal bilaterally Bed Mobility/Transfers: supine to sit: SBA sit to supine: SBA sit to stand: SBA stand to sit: SBA Gait: Amb 30 ft to and from toilet w/SBA and using IV pole for assistance - wide KARMA and slow gait speed observed Balance: 4 stage balance - able to perform feet together and semi tandem stance for >10 seconds, unable to maintain tandem stance for >10 seconds Special Tests: Mobility Limitations Standardized Measure [facility] AM-PAC 6 clicks Basic Mobility Inpatient Short Form: Raw Score: 18 CMS Score: 46.58% Informed Consent/Education: Patient instructed in purpose of PT consult and plan of care. Assessment: Pt currently presenting with balance deficits related to her sudden onset of vertigo yesterday. An extensive vestibular exam was performed today including DHTs, saccades, smooth pursuit, head impulse, convergence/divergence, and skew which were all normal and without symptoms. Her vertigo has likely either resolved or has been controlled with the Meclizine prescribed. All strength was strong and symmetrical bilaterally. Her sensation and coordination is normal. She is very apprehensive with movements and very fearful of falling. She is a fall risk based on the 4 stage balance test today as she could not perform tandem stance for 10 seconds. However, she is very careful with her movements and I do not feel she needs any form of AD at this time. She will need to manage stairs in order to go home as she has many to manage in her home. She will benefit from PT services within the hospital to progress with her function and allow a safe d/c back home. Patient is assessed as a Moderate 13203 complexity based on the following: History: Moderate Examination: Moderate Presentation: Moderate Decision Making: Moderate Goals: Goals X1 week 1. Supine-Sit - independent 2. Sit-Supine - independent 3. Sit-Stand - independent 4. Stand-Sit - independent 5. Bed-Chair - independent 6. Chair-Bed - independent 7. Gait - independent 8. Stairs - independent 9. Independent with home exercise program 10. Balance - able to maintain tandem stance for >10 seconds Plan of Care/Treatment Plan: 1-2x/day, 7 days/week x 1 week. Plan of care has been reviewed with the [employer]ITUDE CHAMBER TECHNICIAN providing the service under Physical Therapy direction. Initiate Physical Therapy intervention for strengthening, bed mobility, transfers, gait, stairs, balance training, use of assistive device. DISCHARGE RECOMMENDATIONS: [x] Home with no services - when medically cleared and able to manage stairs independently TREATMENT CODE/TIME: Moderate Eval 44293 x1 - 45 min Please sign an return this page within 30 days if you agree with the above POC. Thank you! Physician Signature Date [facility]
[2023-12-19 12:49] VITALS: BP 149/67; PULSE 62; RESP 20; TEMP 36.3; O2SAT 97
[2023-12-19] MEDS: Acetaminophen 500 MG TAB 1000 MG PO (13:09)
--- NOTE | 2023-12-19 13:12 | PDOC.CMIN ---
Date of service: 12/19/23 Time of Service: 13:12 Care Management Initial Assmt Initial Assessment Reason for Hospitalization: vertigo, nausea, vomiting, aspiration Functional Status/Living Situation Patient Presentation: Vilma was lying in bed when CM met with her. She stated that she feels a little better now, but when she gets up she needs to move very slowly so she doesn't get dizzy. She stated that she and her are doing well, although he no longer drives. She continues to drive and reports that she is very independent. She stated that they have four children, but only one lives locally; they are all supportive, but her daughter who lives nearby is able to help out if needed due to her proximity. Per report, Vilma will have and MRI tomorrow to rule out a stroke; she is currently being monitored on telemetry. Vilma stated that she worked with PT earlier today; PT is not recommending services at this time. CM will continue to follow. Town of Residence: [place] Resides with: Spouse (Juan) Natural Supports: Four children, three daughters and a son. Employment Status: Retired Instrumental Activities of Daily Living (ADLs): Independent Activities/Hobbies/SocialSupport: Sewing Medications Medication Management: No Issues/Barriers identified Advance Directives Advance Directives: Do you have an Advance Directive: Y 08/26/23 14:33 AD On File at [facility]: N 08/26/23 14:33 Date Asked 12/18/23 12/18/23 10:29 AD Date Reviewed 12/18/23 12/18/23 16:07 COLST On File at [facility] No 08/26/23 14:33 COLST Date Scanned Code Status Resuscitation Status Full Code Insurance Coverage/Financial Issues Insurance: [facility] supplement. ACO Member: Yes Care Team Visit Care Team Role Provider Type Italo Jolly MD Primary Care Provider [facility] STAFF PHYSICIAN Jhonatan Nielsen Other Providers OTHER Gurvinder Cross DO Emergency Provider [facility] STAFF PHYSICIAN Yordy Melendez Admit Provider [facility] STAFF PHYSICIAN Attending Provider Discharge Potential Discharge Needs: PCP F/U Appt Anticipated Barriers to Discharge: None Identified Patient/Family Education Needs: Review discharge instructions, discuss Ask Me Three Transportation: Private vehicle Plan: Anticipate Vilma will return home once medically cleared. Her daughter will drive her home via private vehicle. She will follow up with her PCP and discharge plan of care. CM will continue to follow. 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) Headache (Chronic) Status post cholecystectomy (Acute) Status post breast biopsy (Acute) Status post abdominal hysterectomy (Acute) Migraine (Acute) Lyme disease (Acute) History of gynecological procedure (Acute) History of bladder repair surgery (Acute) History of bilateral oophorectomy (Acute) Hip pain (Acute) Right foot pain (Acute) Asymmetrical sensorineural hearing loss (Acute) Lesion of upper extremity (Acute) Peripheral neuropathy (Acute) Screening for colon cancer (Acute) Right shoulder pain (Acute) Tendonitis of long head of biceps brachii of right shoulder (Acute) Medical History Cataract Hypertension Surgical History History of colonoscopy (~03/2023) flex Sig--Extensive Diverticular Dx VAGINAL PROLAPSE REPAIR (~03/2011) Oophrectomy, Right DX; CYST Oophrectomy, Left 03/24 LEFT Abdominal hysterectomy Cholecystectomy Biopsy of breast Bladder Surgery (~03/2011) CYSTOCELE REPAIR Family History Mother , age 87 Essential hypertension Father , age 59 Heart disease Brother , 80 Essential hypertension COPD (chronic obstructive pulmonary disease) Asthma Maternal Grandfather Throat cancer Paternal Grandfather Heart disease Maternal Grandmother Essential hypertension Paternal Grandmother Stroke Son No problems noted. Daughter No problems noted. Daughter No problems noted. Social History (Updated 09/08/23 @ 13:28 by Beatriz De Souza Smoking/Tobacco Use Status: Never Second Hand Exposure: Yes Counseling given: other Smoking risk assessment performed?: Yes Alcohol Intake: never Drug use: Never Substance use type: does not use Counseling given: No Adopted: No Caregiver/Support person: No Household members: spouse Housing: house Number of Children: 4 number of grandchildren: 4 Communication Needs: Hard of Hearing and Corrective Lenses Education Level: high school Do you need help understanding health information?: Rarely current occupation: retired Pets and animals: No Sexually active: No Do you think of yourself as: straight/heterosexual Current gender identity: female What is your relationship status?: How often do you talk on the phone with friends or family?: once per week How often do you get together with friends or relatives?: decline to answer How often do you attend hindu or synagogue services?: 1-3 times per year Do you belong to any clubs or organized social groups?: no Panel score (0-1 are the most socially isolated patients): 1 What type of physical activity do you participate in: walking Duration: 15-30 minutes/day Frequency: 1-2 times per week Aliyah/Hoahaoism: Non mandaen Special aliyah needs: No Seatbelt use: always Helmet use: No Drive intox or ride w/intox meals on wheels driver: No Firearms in home: No Do you feel safe at home: Yes Do you feel safe in your relationship?: Yes Victim of physical abuse: No Victim of emotional abuse: No Victim of sexual abuse: No Would you like helpful sources: No SDOH(Care Management) Screening Will the Patient Participate in the Screening?: Declined to provide
[2023-12-19 15:48] VITALS: BP 129/69; PULSE 60; RESP 16; TEMP 36.8; O2SAT 96
[2023-12-19 17:09] VITALS: BP 134/75; PULSE 63; RESP 16; O2SAT 97
[2023-12-19] MEDS: Enoxaparin 40 MG/0.4 ML SYR SC (18:35)
[2023-12-19 21:09] VITALS: BP 112/64; PULSE 65; RESP 15; TEMP 37.1; O2SAT 94
[2023-12-19] MEDS: Atorvastatin 40 MG TAB PO (21:10)
[2023-12-19 23:51] VITALS: BP 121/65; PULSE 59; RESP 15; TEMP 36.3; O2SAT 93
[2023-12-20 07:54] VITALS: BP 136/74; PULSE 62; RESP 18; TEMP 36.1; O2SAT 97
--- NOTE | 2023-12-20 08:00 | DI.MRI_ITS ---
Exam(s) MR BRAIN WO EXAM: MR BRAIN WO CLINICAL HISTORY: Vertigo, dizziness TECHNIQUE: Multiplanar multisequence MRI of the brain was performed. COMPARISON: CT CT BRAIN NECK CTA from 12/18/2023 FINDINGS: VENTRICLES AND EXTRA AXIAL SPACES: Normal in size and morphology for the patient's age. MIDLINE SHIFT: None. CEREBRAL PARENCHYMA: No focus of restricted diffusion to suggest acute infarct. No space-occupying le isacc identified. Mild atrophy consistent with the patient's age. Moderate to severe scattered foci o f high signal in the white matter consistent with sequela of chronic microvascular disease. HEMORRHAGE: None. BRAINSTEM/CEREBELLUM: Normal. VISUALIZED PARANASAL SINUSES/MASTOIDS:Clear. Vasculature: Normal flow void. PITUITARY GLAND: Unremarkable. ORBITS: Unremarkable. IMPRESSION: Extensive chronic white matter changes. No evidence of acute infarct. DATA REPOSITORY:
--- NOTE | 2023-12-20 08:00 | DI.US_ITS ---
APPROVED REPORT EXAM: Comprehensive 2D, Doppler, and color-flow Echocardiogram Patient Location: In-Patient Room/Bed: [address] Stringing Machine Operator: Shamika Moreland RDCS (AE) Indications: r/o Cerebral stroke Echo Enhancing Agent Indication: Rule out Shunt Agent(s) / Amount(s) Used: Agitated Saline 30.0 cc Comments: Contrast study was performed with 3 IV injections of 10ccs of agitated normal saline, at re st, with cough and post valsalva maneuver. Negative contrast study for shunt flow. Other Information Study Quality: Adequate. Technically limited study due to body habitus. Conclusion Normal left ventricular wall thickness and chamber size. Ejection fraction is 59%. Wall motion is n ormal Normal right ventricular size and function Both atria are normal in size No intracardiac shunt is identified with injection of agitated saline There are no structural valvular abnormalities Mild mitral regurgitation Ascending aorta measures 3.96 cm Wall motion Left Ventricle The left ventricle is normal size. The left ventricular systolic function is normal. The left ventric ular ejection fraction is within the normal range. There is normal left ventricular wall thickness. T here is normal LV segmental wall motion. There is no ventricular septal defect visualized. LVEF is 59 %. Right Ventricle The right ventricle is normal size. The right ventricular systolic function is normal. Atria The left atrium size is normal. The right atrium size is normal. The interatrial septum is intact wit h no evidence for an atrial septal defect. Saline bubble contrast intravenous injection does not demo nstrate PFO. Aortic Valve Aortic valve is trileaflet. There is no aortic valvular stenosis. No aortic regurgitation is present. Mitral Valve The mitral valve is normal in structure. No evidence of mitral valve stenosis. Mild mitral regurgitat ion. Tricuspid Valve The tricuspid valve is normal in structure. There is no tricuspid valve stenosis. Trace tricuspid reg urgitation. The RVSP is 30.3 mmHg. Pulmonic Valve The pulmonary valve is normal in structure. There is no pulmonic valvular stenosis. There is no pulmo zhao valvular regurgitation. Great Vessels The aortic root is normal in size. The ascending aorta is mild to Aortic arch is normal in caliber.mo derately dilated. IVC is normal in size and collapses >50% with inspiration. Pericardium There is no pericardial effusion. 2D Dimensions IVSD d PLAX 0.80 cm F: 0.6-1.0 Ao Root d 2.84 cm F: 2.7 - 3.3 LVPW d PLAX 0.83 cm F: 0.6 - 1.0 Ao Asc Diam d 3.96 cm F: 2.3 - 3.1 LVID d PLAX 4.76 cm F: 3.8 - 5.2 LVDs 3.28 cm F: 2.2 - 3.5 LV EF Teichholz 59.0 % FS 31.24 % LV EDV (Teich) 105.6 mL LV ESV (Teich) 43.4 mL M-Mode TAPSE 2.32 cm (M/F) >1.7 Auto EF LV EDV A4C 90.8 mL LV EDV A2C 66.2 mL LV EDV BP 78.0 mL LV ESV A4C 39.4 mL LV ESV A2C 28.7 mL LV ESV BP 33.0 mL LVEF(%) A4C 56.6 % LVEF(%) A2C 56.6 % LVEF(%) BP 57.7 % LV SV A4C 51.4 ml LV SV A2C 37.4 ml LV SV BP 45.0 ml LV CO A4C 3.3 L/min LV CO A2C 2.7 L/min LV CO BP 3.0 L/min HR A4C 63.83 BPM HR A2C 70.98 BPM LV EDV Index (BP) LA Volume LA Length A4C 4.9 cm LA Length A2C 4.8 cm LA Area A4C s 17.86 cm2 LA Area A2C s 14.39 cm2 LA Vol A4C A-L 54.87 mL LA Vol A2C A-L 36.47 mL LA Vol Biplane A-L 45.3 mL LA Vol/BSA A4C A-L LA Vol/BSA A2C A-L LA Vol/BSA BP A-L 25.0 mL/m2 LA Vol A4C MOD 50.4 mL LA Vol A2C MOD 33.8 mL LA Vol BP MOD 41.6 mL RA Volume RA Area A4C 10.9 cm2 RA ESV A4C (A-L) 24.1mL RA Vol/BSA A4C A-L RA Length A4C 4.2 cm RA ESV A4C (MOD) 23.1mL LV Diastology MV E' medial 0.067 (>0.07 m/s) MV E Vmax 0.53 (0.4-1.3 m/s) MV E/E' MED 7.95 (<14) MV A Vmax 0.90 (0.4-1.3 m/s) MV E' lateral 0.077 (>0.1 m/s) E/A Ratio 0.6 MV E/E' LAT 6.90 (<14) MV E' Average 0.072 m/s MV E/E'(average) 7.39 Aortic Valve AoV Vmax 1.43 m/s LVOT Vmax 1.14 m/s AoV Peak Grad 8.2 mmHg LVOT Peak Grad 5.2 mmHg AoV Area (Vmax) 2.42 cm2 LVOT VTI 0.227 m AoV VTI 0.310 m LVOT Mean Grad 2.3 mmHg AoV Mean Colton. 0.94 m/s LVOT SV 68.65 mL AoV Mean Grad 4.1 mmHg LVOT Diam s 1.95 cm AoV Area (VTI) 2.21 cm2 Velocity Ratio 0.80 Mitral Valve MV DT 325 (160-240 msec) MV Vmax TIPS 0.94 m/s MV Mean Grad 1.4 (<2mmHg) MV VTI 0.240 m Pulmonary Valve PV Vmax 1.16 (0.5-1.5 m/s) RVOT Vmax 0.93 m/s PV Peak Grad 5.4 mmHg RVOT Peak Gr. 3.5 mmHg PV Mean Colton 0.85 m/s RVOT VTI 0.185 m PV Mean Grad 3.2 mmHg RVOT Mean Gr. 2.0 mmHg Tricuspid Valve RA Pressure 3.00 mmHg TR Vmax 2.60 m/s TV S' 0.21 m/s TR Peak Grad 27.0 mmHg RVSP (TR) 30.0 mmHg
[2023-12-20] MEDS: Aspirin E.C. 81 MG TABEC PO (08:48)
[2023-12-20] MEDS: Lisinopril 5 MG TAB PO (08:48)
[2023-12-20] MEDS: Lactobacillus Acidophilus CAP 1 CAP PO (08:48)
[2023-12-20] MEDS: Cyanocobalamin 500 MCG TAB 1000 MCG PO (08:48)
[2023-12-20] MEDS: Omega-3 Fatty Acids 1000 MG CAP PO (08:48)
[2023-12-20] MEDS: Multivitamin TAB 1 TAB PO (08:48)
[2023-12-20] MEDS: Normal Saline Flush 10 ML SYR IVP (12:19)
[2023-12-20 12:56] VITALS: BP 130/75; PULSE 64; RESP 18; TEMP 36.6; O2SAT 99
--- NOTE | 2023-12-20 14:38 | DSE_ITS ---
Date of service: 12/20/23 Time of Service: 14:38 DS: Diagnosis Discharge Diagnosis (1) Vertigo: Status: Acute (2) Nausea & vomiting: Status: Acute (3) Memory impairment: Status: Acute (4) Hypercholesterolemia: Status: Acute (5) Essential hypertension: Status: Acute (6) Hearing loss: Status: Acute Discharge Plan Disposition Patient Disposition: Home Condition: Stable Discharge Details Reason For Visit: vertigo,nausea,vomiting,aspiration Admit Date/Time: 12/18/23 14:54 Admit Provider: Yordy Melendez Attending Provider: Yordy Melendez Primary Care Provider: Italo Jolly Hospital Course Hospital Course: This is a 78 year old female with past medical history of dementia, breast cancer treated with excision manage requiring chemotherapy, mid early memory loss, taking ASA, presented to the Emergency department at [facility] via EMS for evaluation of dizziness. She received meclizine and stroke work up which was unremarkable, with symptoms associated with positive changes. hospitalist services was contacted and she was admitted for further management and evaluations. she underwent an MRI which showed no evidence of acute stroke and an echo with EF 59% with no valvular abnormalities. Physical therapy consultation was positive for left upbeating/torsional nystagmus when head was turned to the L, saw double and became symptomatic. Will order outpatient PT for BPPV. She was taught the L Victorina and was given a copy on how to do it. She is to call for appointment for outpatient if symptoms do not resolve in 2-3 days. She was safely reambulated using a walker and demonstrated safe use of stairs. discharge discussed with DR Tato Ojeda Meds and New Rx's Prescriptions: Continued Adult 50 Plus Probiotic 4 billion cell capsule 4,000 mmu cells PO DAILY Patient Comments: not taking Rx Instructions: administer with a meal multivitamin [Once Daily] 1 EACH tablet 1 ea PO DAILY Fish Oil 1 EACH capsule 1 ea PO DAILY Psyllium [Metamucil] 1 EACH packet 1 ea PO DAILY PRN acetaminophen [Tylenol Extra Strength] 500 MG tablet 1,000 mg PO Q6H PRN loratadine 10 mg tablet 10 mg PO DAILY PRN MDD 10mg Qty: 30 Patient Comments: took one a few days ago Rx Instructions: Take daily for 2 weeks, then as needed daily. cyanocobalamin (vitamin B-12) 1,000 mcg capsule 1,000 mcg PO DAILY Qty: 90 3RF lisinopril 5 mg tablet 5 mg PO DAILY Qty: 90 3RF aspirin [Aspir-81] 81 MG tablet,delayed release (DR/EC) 1 tab PO DAILY Discharge Instructions Instructions: Vertigo (a type of dizziness) Additional Instructions: drink at least 6-8 glasses of water daily to stay well hydrated. call for appointment for outpatient physical therapy if symptoms do not resolve in 2-3 days do victorina maneuver as instructed, please see handouts that have been provided Referrals: Italo Jolly MD [Primary Care Provider] - [facility] [Provider Group] (referral for BPPV positive for L upbeating/torsional nystagmus when head turned to left) Activity:: Activity as Tolerated Equipment/Supplies:: No Equipment Needed Diet:: As Tolerated Discharge Orders Discharge Orders: Discharge Order (Routine); Ordered 12/20/23 Ordered By: Val August DS: Summary Time Spent with Patient providing and/or coordinating discharge services: Greater than 30 minutes Status at Discharge Functional status at discharge: uses cane/walker Overall status at discharge: patient is not back to baseline Mental Status: mental status grossly normal Speech and Movement: speech and movement normal Mood: congruent mood Affect: normal affect Quality:SDOH Health Related Social Needs: No Data to Display Exam Const General: cooperative, healthy appearing, comfortable and no acute distress Nutritional Appearance: average body habitus Orientation: alert, awake and oriented x3 HENMT Head: normal to inspection, normocephalic and atraumatic Face and sinus: normal facial exam Mouth: moist mucous membranes Eyes General: appearance normal, both eyes and all related structures Resp Effort & Inspection: normal respiratory effort Cardio Rate: regular rate Neuro General: patient alert, patient awake and patient oriented x3 Psych Mental Status: mental status grossly normal Speech and Movement: speech and movement normal Mood: congruent mood Affect: normal affect DS: Data Vitals/I&O Vitals and I&O: Vital Signs Temperature 36.6 C 12/20/23 12:56 Temperature Source Skin 12/20/23 12:56 Pulse 64 12/20/23 12:56 Pulse Rhythm Regular 12/20/23 11:38 Pulse 70 12/18/23 15:15 Respiratory Rate 18 12/20/23 12:56 Respiratory Effort Normal 12/20/23 11:38 Respiratory Depth Normal 12/20/23 11:38 Respiratory Pattern Irregular 12/20/23 11:38 Blood Pressure 130/75 12/20/23 12:56 Blood Pressure Mean 100 12/18/23 15:30 Pulse Oximetry 99 12/20/23 12:56 Oxygen Delivery Method Room Air 12/20/23 12:56 Oxygen Flow Rate 0 12/20/23 12:56 Pain Level 0 12/20/23 12:56 Comment reported feeling dizzy 12/19/23 17:09 Intake & Output 12/19/23 12/20/23 12/20/23 23:59 11:59 23:59 Intake Total 618.75 / 1552.50 0 / 240 240 / 240 Output Total 525 / 525 1000 / 1000 Balance 93.75 / 1027.50 -1000 / -760 240 / -760 Intake: IV 378.75 / 1312.50 0 / 0 Oral 240 / 240 240 / 240 Output: Urine 525 / 525 1000 / 1000 Other: Urine Color Pale Yellow Yellow Urine Appearance Clear Clear Urine Odor Normal Comment x2 unmeaured Stool Size Moderate Stool Characteristics Hard Brown Voiding Methods Bedside Commode Bedside Commode Bedside Commode Imaging MRI - head: Radiologist's impression: Exam(s) MR BRAIN WO EXAM: MR BRAIN WO CLINICAL HISTORY: Vertigo, dizziness TECHNIQUE: Multiplanar multisequence MRI of the brain was performed. COMPARISON: CT CT BRAIN NECK CTA from 12/18/2023 FINDINGS: VENTRICLES AND EXTRA AXIAL SPACES: Normal in size and morphology for the patient's age. MIDLINE SHIFT: None. CEREBRAL PARENCHYMA: No focus of restricted diffusion to suggest acute infarct. No space-occupying lesion identified. Mild atrophy consistent with the patient's age. Moderate to severe scattered foci of high signal in the white matter consistent with sequela of chronic microvascular disease. HEMORRHAGE: None. BRAINSTEM/CEREBELLUM: Normal. VISUALIZED PARANASAL SINUSES/MASTOIDS:Clear. Vasculature: Normal flow void. PITUITARY GLAND: Unremarkable. ORBITS: Unremarkable. IMPRESSION: Extensive chronic white matter changes. No evidence of acute infarct. Lab and Radiology Reports: Laboratory Results WBC 7.53 10^3/uL (4.4-10.8) 12/19/23 05:50 RBC 4.24 10^6/uL (3.93-5.22) 12/19/23 05:50 Hgb 13.4 g/dL (11.2-15.7) 12/19/23 05:50 Hct 39.1 % (36.0-46.0) 12/19/23 05:50 MCV 92 fL (80-95) 12/19/23 05:50 MCH 31.6 pg (27.0-33.0) 12/19/23 05:50 MCHC 34.3 % (32.0-36.0) 12/19/23 05:50 RDW 12.5 % (11.7-14.6) 12/19/23 05:50 Plt Count 178 10^3/uL (130-400) 12/19/23 05:50 MPV 10.2 fL (8.0-11.0) 12/19/23 05:50 Immature Gran % 0.3 % 12/19/23 05:50 Neutrophils % 57.3 % 12/19/23 05:50 Lymphocytes % 31.6 % 12/19/23 05:50 Monocytes % 9.8 % 12/19/23 05:50 Eosinophils % 0.9 % 12/19/23 05:50 Basophils % 0.1 % 12/19/23 05:50 Nucleated RBC % 0.0 % (0.0-0.3) 12/19/23 05:50 Absolute Neutrophils 4.31 10^3/uL (1.2-6.7) 12/19/23 05:50 Absolute Lymphocytes 2.38 10^3/uL (1.2-3.4) 12/19/23 05:50 Absolute Monocytes 0.74 10^3/uL (0.1-0.8) 12/19/23 05:50 Absolute Eosinophils 0.07 10^3/uL (0.0-0.7) 12/19/23 05:50 Absolute Basophils 0.01 10^3/uL (0.0-0.2) 12/19/23 05:50 PT 11.0 sec (9.1-11.1) 12/18/23 10:35 INR 1.1 (0.9-1.1) 12/18/23 10:35 APTT 25.9 sec (23.6-32.8) 12/18/23 10:35 Sodium 144 mmol/L (136-145) 12/19/23 05:50 Potassium 3.6 mmol/L (3.5-5.1) 12/19/23 05:50 Chloride 107 mmol/L (98-107) 12/19/23 05:50 Carbon Dioxide 30.1 mmol/L (21.0-32.0) 12/19/23 05:50 Anion Gap 6.9 mmol/L (3-11) 12/19/23 05:50 BUN 10 mg/dL (7-18) 12/19/23 05:50 Creatinine 0.6 mg/dL (0.55-1.02) 12/19/23 05:50 Est GFR (CKD-EPI 2020) 90.68 (mL/min/1.73m2) 12/19/23 05:50 Glucose 91 mg/dL (74-106) 12/19/23 05:50 Hemoglobin A1c 5.7 % (<5.7) 12/19/23 05:50 Calcium 8.7 mg/dL (8.5-10.1) 12/19/23 05:50 Magnesium 1.9 mg/dL (1.8-2.4) 12/19/23 05:50 Total Bilirubin 0.63 mg/dL (0.2-1.0) 12/18/23 10:35 AST 21 U/L (15-37) 12/18/23 10:35 ALT 29 U/L (14-59) 12/18/23 10:35 Alkaline Phosphatase 43 U/L (46-116) L 12/18/23 10:35 Troponin I < 50 ng/L (< or =60) 12/18/23 13:49 Total Protein 7.1 g/dL (6.4-8.2) 12/18/23 10:35 Albumin 3.7 g/dL (3.4-5.0) 12/18/23 10:35 Triglycerides 214 mg/dL (<150) H 12/19/23 05:50 Total Cholesterol 181 mg/dL (<200) 12/19/23 05:50 LDL Cholesterol, Calc 97 mg/dL (<100) 12/19/23 05:50 HDL Cholesterol 42 mg/dL (40-60) 12/19/23 05:50 TSH 2.26 uIU/mL (0.36-3.74) 12/18/23 10:35 COVID-19 Source Not Applicable 12/18/23 16:00 SARS-CoV-2 (PCR) Negative (Negative) 12/18/23 16:00 Influenza Type A (PCR) Negative (Negative) 12/18/23 16:00 Influenza Type B (PCR) Negative (Negative) 12/18/23 16:00 RSV (PCR) Negative (Negative) 12/18/23 16:00 Additional Comments Additional comments: EXAM: Comprehensive 2D, Doppler, and color-flow Echocardiogram Patient Location: In-Patient Room/Bed: [facility] [place] Table Operator: Shamika Moreland RDCS (AE) Indications: r/o Cerebral stroke Echo Enhancing Agent Indication: Rule out Shunt Agent(s) / Amount(s) Used: Agitated Saline 30.0 cc Comments: Contrast study was performed with 3 IV injections of 10ccs of agitated normal saline, at rest, with cough and post valsalva maneuver. Negative contrast study for shunt flow. Other Information Study Quality: Adequate. Technically limited study due to body habitus. Conclusion Normal left ventricular wall thickness and chamber size. Ejection fraction is 59%. Wall motion is normal Normal right ventricular size and function Both atria are normal in size No intracardiac shunt is identified with injection of agitated saline There are no structural valvular abnormalities Mild mitral regurgitation Ascending aorta measures 3.96 cm Wall motion Left Ventricle The left ventricle is normal size. The left ventricular systolic function is normal. The left ventricular ejection fraction is within the normal range. There is normal left ventricular wall thickness. There is normal LV segmental wall motion. There is no ventricular septal defect visualized. LVEF is 59%. Right Ventricle The right ventricle is normal size. The right ventricular systolic function is normal. Atria The left atrium size is normal. The right atrium size is normal. The interatrial septum is intact with no evidence for an atrial septal defect. Saline bubble contrast intravenous injection does not demonstrate PFO. Aortic Valve Aortic valve is trileaflet. There is no aortic valvular stenosis. No aortic regurgitation is present. Mitral Valve The mitral valve is normal in structure. No evidence of mitral valve stenosis. Mild mitral regurgitation. Tricuspid Valve The tricuspid valve is normal in structure. There is no tricuspid valve stenosis. Trace tricuspid regurgitation. The RVSP is 30.3 mmHg. Pulmonic Valve The pulmonary valve is normal in structure. There is no pulmonic valvular stenosis. There is no pulmonic valvular regurgitation. Great Vessels The aortic root is normal in size. The ascending aorta is mild to Aortic arch is normal in caliber.moderately dilated. IVC is normal in size and collapses >50% with inspiration. Pericardium There is no pericardial effusion. 2D Dimensions IVSD d PLAX 0.80 cm F: 0.6-1.0Ao Root d 2.84 cm F: 2.7 - 3.3 LVPW d PLAX 0.83 cm F: 0.6 - 1.0Ao Asc Diam d 3.96 cm F: 2.3 - 3.1 LVID d PLAX 4.76 cm F: 3.8 - 5.2 LVDs 3.28 cm F: 2.2 - 3.5 LV EF Teichholz 59.0 % FS31.24 % LV EDV (Teich)105.6 mL LV ESV (Teich)43.4 mL M-Mode TAPSE 2.32 cm (M/F) >1.7 Auto EF LV EDV A4C90.8 mLLV EDV A2C66.2 mLLV EDV BP78.0 mL LV ESV A4C39.4 mLLV ESV A2C28.7 mLLV ESV BP33.0 mL LVEF(%) A4C56.6 %LVEF(%) A2C56.6 %LVEF(%) BP57.7 % LV SV A4C51.4 mlLV SV A2C37.4 mlLV SV BP45.0 ml LV CO A4C3.3 L/minLV CO A2C2.7 L/minLV CO BP3.0 L/min HR A4C63.83 BPMHR A2C70.98 BPMLV EDV Index (BP) LA Volume LA Length A4C4.9 cmLA Length A2C4.8 cm LA Area A4C s 17.86 cm2LA Area A2C s 14.39 cm2 LA Vol A4C A-L54.87 mLLA Vol A2C A-L36.47 mLLA Vol Biplane A-L45.3 mL LA Vol/BSA A4C A-LLA Vol/BSA A2C A-LLA Vol/BSA BP A-L 25.0 mL/m2 LA Vol A4C MOD50.4 mLLA Vol A2C MOD33.8 mLLA Vol BP MOD41.6 mL RA Volume RA Area A4C10.9 cm2RA ESV A4C (A-L)24.1mLRA Vol/BSA A4C A-L RA Length A4C4.2 cmRA ESV A4C (MOD)23.1mL LV Diastology MV E' medial0.067 (>0.07 m/s)MV E Vmax 0.53 (0.4-1.3 m/s) MV E/E' MED7.95 (<14)MV A Vmax 0.90 (0.4-1.3 m/s) MV E' lateral0.077 (>0.1 m/s)E/A Ratio 0.6 MV E/E' LAT6.90 (<14) MV E' Average0.072 m/s MV E/E'(average)7.39 Aortic Valve AoV Vmax1.43 m/sLVOT Vmax 1.14 m/s AoV Peak Grad8.2 mmHgLVOT Peak Grad 5.2 mmHg AoV Area (Vmax)2.42 kg0KBLL VTI0.227 m AoV VTI0.310 mLVOT Mean Grad 2.3 mmHg AoV Mean Colton.0.94 m/sLVOT SV 68.65 mL AoV Mean Grad4.1 mmHgLVOT Diam s 1.95 cm AoV Area (VTI)2.21 cm2 Velocity Ratio 0.80 Mitral Valve MV DT 325 (160-240 msec) MV Vmax TIPS 0.94 m/s MV Mean Grad 1.4 (<2mmHg) MV VTI 0.240 m Pulmonary Valve PV Vmax 1.16 (0.5-1.5 m/s)RVOT Vmax 0.93 m/s PV Peak Grad 5.4 mmHgRVOT Peak Gr.3.5 mmHg PV Mean Vel0.85 m/sRVOT VTI0.185 m PV Mean Grad 3.2 mmHgRVOT Mean Gr.2.0 mmHg Tricuspid Valve RA Pressure 3.00 mmHgTR Vmax 2.60 m/s TV S'0.21 m/sTR Peak Grad 27.0 mmHg RVSP (TR) 30.0 mmHg Ordered By: Cady Birmingham APRN CC: Dictated By: Brenda Rutledge M.D. 12/20/23 1318 <Electronically signed by Brenda Rutledge M.D. in OV> 12/20/23 1325 Transcribed By: Brenda Rutledge MD 12/20/23 1318 [facility] All Active Problems (Updated 12/18/23 @ 16:18 by Cady Birmingham APRN) Nausea & vomiting (Acute) Vertigo (Acute) Memory impairment (Acute) Diverticula of colon (Acute) Preventive measure (Acute) Arthritis of left knee (Acute 04/16/17) mild DJD on xray 2017 Nondisplaced fracture of lateral malleolus of right fibula, subsequent encounter for closed fracture with routine healing (Acute 07/29/16) Hearing loss (Acute) LEFT Hypercholesterolemia (Acute 11/24/07) Essential hypertension (Acute) Increased BMI (Acute) Pressure sensation in right ear (Acute 02/02/17) 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) Headache (Chronic) Status post cholecystectomy (Acute) Status post breast biopsy (Acute) Status post abdominal hysterectomy (Acute) Migraine (Acute) Lyme disease (Acute) History of gynecological procedure (Acute) History of bladder repair surgery (Acute) History of bilateral oophorectomy (Acute) Hip pain (Acute) Right foot pain (Acute) Asymmetrical sensorineural hearing loss (Acute) Lesion of upper extremity (Acute) Peripheral neuropathy (Acute) Screening for colon cancer (Acute) Right shoulder pain (Acute) Tendonitis of long head of biceps brachii of right shoulder (Acute) Medical History Cataract Hypertension Surgical History History of colonoscopy (~03/2023) flex Sig--Extensive Diverticular Dx VAGINAL PROLAPSE REPAIR (~03/2011) Oophrectomy, Right DX; CYST Oophrectomy, Left 03/24 LEFT Abdominal hysterectomy Cholecystectomy Biopsy of breast Bladder Surgery (~03/2011) CYSTOCELE REPAIR Family History Mother , age 87 Essential hypertension Father , age 59 Heart disease Brother , 80 Essential hypertension COPD (chronic obstructive pulmonary disease) Asthma Maternal Grandfather Throat cancer Paternal Grandfather Heart disease Maternal Grandmother Essential hypertension Paternal Grandmother Stroke Son No problems noted. Daughter No problems noted. Daughter No problems noted. Social History (Updated 09/08/23 @ 13:28 by Beatriz Ortega) Smoking/Tobacco Use Status: Never Second Hand Exposure: Yes Counseling given: other Smoking risk assessment performed?: Yes Alcohol Intake: never Drug use: Never Substance use type: does not use Counseling given: No Adopted: No Caregiver/Support person: No Household members: spouse Housing: house Number of Children: 4 number of grandchildren: 4 Communication Needs: Hard of Hearing and Corrective Lenses Education Level: high school Do you need help understanding health information?: Rarely current occupation: retired Pets and animals: No Sexually active: No Do you think of yourself as: straight/heterosexual Current gender identity: female What is your relationship status?: How often do you talk on the phone with friends or family?: once per week How often do you get together with friends or relatives?: decline to answer How often do you attend quaker or worship services?: 1-3 times per year Do you belong to any clubs or organized social groups?: no Panel score (0-1 are the most socially isolated patients): 1 What type of physical activity do you participate in: walking Duration: 15-30 minutes/day Frequency: 1-2 times per week Aliyah/Gnosticist: Non taoist Special aliyah needs: No Seatbelt use: always Helmet use: No Drive intox or ride w/intox frontload driver: No Firearms in home: No Do you feel safe at home: Yes Do you feel safe in your relationship?: Yes Victim of physical abuse: No Victim of emotional abuse: No Victim of sexual abuse: No Would you like helpful sources: No Time Spent with Patient Time Spent with Patient: 45-69 minutes Time was spent: preparing to see the patient(eg.review tests), obtaining and/or reviewing separately otained hiistory, ordering medications,tests, procedures, referring, communicating with other health restorative care technician, indepentently interpreting results and counseling the patient
--- NOTE | 2023-12-20 14:40 | PT.INTREAT ---
PT Notes Visit Reasons: vertigo,nausea,vomiting,aspiration Inpatient Physical Therapy Treatment Note [facility] Date: 12/20/23 SUBJECTIVE: Nery states that she is feeling a little better today. She is very nervous about falling. Still getting dizzy if she turns her head to quickly. States that she had an MRI as well as heart testing this am and is anxiously awaiting the test results. OBJECTIVE: []? VITALS: ? monitored by nursing. Therapeutic Activities (58913n5): Direct one-on-one instruction in dynamic activities to improve functional performance. ? BED MOBILITY/TRANSFERS? Rolling L/R: I Supine-sit: I ? Sit-supine: I ? Sit-stand: SBA? Stand-sit:S ? Provided skilled cues and instruction on performance and technique throughout. GAIT? Assistive Device: FWW? Weight bearing: full Assist: SBA? Distance:? approx 50-60' ?within room ? Deviation: short strides. ASSESSMENT:? tolerated session well. Opted to use FWW today as Vilma was feeling like her balance was off. FWW was quite helpful. Cues to take bigger strides. Avoiding quick turning. PLAN: will continue to progress her functional mobility to tolerance. TREATMENT CODE/TIME: 25 min.
[2023-12-20 15:18] VITALS: BP 128/71; PULSE 78; RESP 18; TEMP 36.8; O2SAT 96
--- NOTE | 2023-12-20 15:45 | PTTR_ITS ---
PT Notes Visit Reasons: vertigo,nausea,vomiting,aspiration Inpatient Physical Therapy Treatment Note [facility] Date: 12/20/23 SUBJECTIVE: Agreeable to assessment for BPPV after explanation was given for patient regarding the test and what it is for. Reported increased symptom of lightheadedness and double vision with performance of L KYLE-Hallpike. OBJECTIVE: Sitting at edge of bed. Mildly upset about going home when she does not feel safe yet. Agreeable to doing mobility assessment with PT and to doing the Kyle- Hallpike maneuver after. ? VITALS: WNL as closley monitored by nursing staff BED MOBILITY/TRANSFERS? Rolling L/R: independent Supine-sit: independent? Sit-supine: independent? Sit-stand: independent? GAIT? Assistive Device: FWW? Weight bearing: FWB Assist: SBA? Distance:? 300 feet using FWW ? Deviation: Steps hesitant initially but patient felt more comfortable with gait using device. Reyna slower than pre-admission to hopsital STAIRS: Up and down 6 x 4-inch steps and 4 x 6-inch steps while holding onto 1 rail requiring only supervision assist with slow step-over step pattern used. No LOB, No increase in symptoms reported. ASSESSMENT:? Per Val August's request, Kyle-Halpike maneuver was administered to rule out BPPV. Patient tested positive for L upbeating /torsional nystagmus with the head turned L with increase in symproms of lightheadedness an seeing double. L Yelena maneuver was done and patient was asked to rest in sitting for 15 minutes. Patient and daughter trained with L Yelena maneuver. Copy of home Yelena maneuver furnished. Opted to use FWW today as Vilma was feeling like her balance was off. FWW was quite helpful. Cues to take bigger strides. Avoiding quick turning. DISCHARGE RECOMMENDATIONS: [] [] Home with no services [] [] Home with services [specify] [X] Home with outpatient PT. patient to call outpatient PT for an appointment if symptoms do not resolve in 2 to 3 days. Hospitalist TEJINDER Neal updated of said recommendation and is in agreement. [] SNF for continued rehabilitation [] [] [facility] [] [] SNF versus LTC based on ability to participate and progress [] TREATMENT CODE/TIME: 31750 x 53 minutes for 4 units (15:45-16:38).
--- NOTE | 2023-12-20 17:19 | PDOC.CMDIS ---
Date of service: 12/20/23 Time of Service: 17:19 LACE Index Scoring Tool Questions: Length of Stay (in days): 2 Was the patient admitted via the E.D.?: Yes E.D. Visits: 0 Answers: Total Score: 5 Risk of Readmission: Low Risk Care Management Discharge Plan Reason for Hospitalization: vertigo, nausea, vomiting Discharge Plan: Vilma will return home today with a referral for outpatient PT. Her daughter will drive her home via private vehicle. She will follow up with her PCP and discharge plan of care. Patient/Family Education Needs: Review discharge instructions and limitations, discussion of self care needs including ask me three. Services Needed at Discharge: Outpatient Therapy SDOH Health Related Social Needs: No Data to Display
== END 2023-12-20 17:40 | disposition home or self-care (01) ==
LOC: ER 14:25 → MS 16:03
PROVIDERS: Nurse Practitioner Acute Care; Admitting Provider Family Medicine; Emergency Provider Student in an Organized Health Care Education/Training Program; PCP Family Medicine; Visit Provider Family Medicine
DX: R42 Dizziness and giddiness (principal); R41.3 Other amnesia; R11.2 Nausea with vomiting, unspecified; I34.0 Nonrheumatic mitral (valve) insufficiency; I10 Essential (primary) hypertension; E78.00 Pure hypercholesterolemia, unspecified; Z85.3 Personal history of malignant neoplasm of breast; Z79.82 Long term (current) use of aspirin; F03.90 Unspecified dementia, unspecified severity, without behavioral disturbance, psychotic disturbance, mood disturbance, and anxiety; H90.3 Sensorineural hearing loss, bilateral; G62.9 Polyneuropathy, unspecified
CPT/HCPCS: 00123; 36415; 70496; 70498; 80048; 80053; 80061; 87637; 93005; 96361; 96365; 96372; 96375; 97112; 97162; 97530; 99285; J1650; 70551; 71045; 83036; 83735; 84443; 84484; 85025; 85610; 85730; 93010; 93306; 99223; 99239; G0378; J0295; J2405; J2765; J3360; J3490

== ENCOUNTER 2024-09-20 02:05 | Outpatient (CLI) | payer MEDICARE, SELFPAY ==
[2024-09-20 19:56] LABS: Vitamin B12 556 pg/mL (193-986)
== END 2024-09-20 02:06 | disposition home or self-care (01) ==
LOC: LBO 02:06
PROVIDERS: PCP Family Medicine; Visit Provider Family Medicine
DX: D64.9 Anemia, unspecified (principal)
CPT/HCPCS: 36415; 82607

== ENCOUNTER 2025-05-17 11:03 | Outpatient (CLI) | payer MEDICARE, SELFPAY ==
[2025-05-17 14:32] LABS: Potassium 4.1 mmol/L (3.5-5.1)
== END 2025-05-17 11:04 | disposition home or self-care (01) ==
PROVIDERS: PCP Family Medicine; Visit Provider Family Medicine
DX: I10 Essential (primary) hypertension (principal)
CPT/HCPCS: 36415; 82565; 84132